=== PATIENT | female | born 1980 | race Caucasian/White ===

== ENCOUNTER → 2019-08-05 | Outpatient (CLI) | payer OTHER ==
[2019-08-05 09:11] LABS: BASO # 0.1 x10^3/uL (0.0-0.2); BASO % 1 % (0-3); EOS # 0.2 x10^3/uL (0.0-0.7); EOS % 1 % (0-3); HEMATOCRIT 35.4 % (36.0-47.0); HEMOGLOBIN 12.4 g/dL (12.0-15.5); LYMPH # 2.7 x10^3/uL (1.0-4.8); LYMPH % 20 % (24-48); MEAN CORPUSCULAR HEMOGLOBIN 35 pg (25-35); MEAN CORPUSCULAR HGB CONC 35 g/dL (31-37); MEAN CORPUSCULAR VOLUME 100 fL (79-100); MONO # 0.9 x10^3/uL (0.0-1.1); MONO % 7 % (0-9); NEUT # 9.5 x10^3/uL (1.8-7.7); NEUT % 72 % (31-73); PLATELET COUNT 275 x10^3/uL (140-400); RED BLOOD COUNT 3.55 x10^6/uL (3.50-5.40); RED CELL DISTRIBUTION WIDTH 13.6 % (11.5-14.5); WHITE BLOOD COUNT 13.3 x10^3/uL (4.0-11.0)
== END | disposition home or self-care (01) ==
LOC: LAB 08:38
PROVIDERS: ATTEND Obstetrics & Gynecology
DX: O09.90 Supervision of high risk pregnancy, unspecified, unspecified trimester (principal)
CPT/HCPCS: 36415; 82947; 82950; 85025; 86850; 86900; 86901; 96372; J2791

== ENCOUNTER 2019-10-28 11:00 | Inpatient (IN) | payer OTHER ==
[~2019-10-28] VITALS: Ht 160 cm; Wt 82.1 kg
[2019-10-28 11:27] LABS: BILIRUBIN,URINE NEGATIVE (NEG); CLARITY,URINE CLEAR; COLOR,URINE YELLOW; NITRITE,URINE NEGATIVE (NEG); PROTEIN,URINE NEGATIVE (NEG-TRACE); UROBILINOGEN,URINE 0.2 mg/dL (0.2 mg/dL)
[2019-10-28 11:46] LABS: BACTERIA,URINE FEW /HPF (0-FEW); RBC,URINE 0 /HPF (0-2); SQUAMOUS EPITHELIAL CELL,UR MANY /LPF; WBC,URINE OCC /HPF (0-4)
[2019-10-28 11:57] LABS: BASO # 0.1 x10^3/uL (0.0-0.2); BASO % 1 % (0-3); EOS # 0.1 x10^3/uL (0.0-0.7); EOS % 1 % (0-3); HEMATOCRIT 40.8 % (36.0-47.0); HEMOGLOBIN 14.3 g/dL (12.0-15.5); LYMPH % 20 % (24-48); MEAN CORPUSCULAR HEMOGLOBIN 35 pg (25-35); MEAN CORPUSCULAR HGB CONC 35 g/dL (31-37); MEAN CORPUSCULAR VOLUME 101 fL (79-100); MONO # 0.7 x10^3/uL (0.0-1.1); MONO % 7 % (0-9); NEUT # 7.4 x10^3/uL (1.8-7.7); NEUT % 72 % (31-73); PLATELET COUNT 199 x10^3/uL (140-400); RED BLOOD COUNT 4.05 x10^6/uL (3.50-5.40); RED CELL DISTRIBUTION WIDTH 13.9 % (11.5-14.5); WHITE BLOOD COUNT 10.2 x10^3/uL (4.0-11.0)
[2019-10-28 12:08] LABS: CALCIUM 8.1 mg/dL (8.5-10.1); CREATININE 0.7 mg/dL (0.6-1.0); GFR 92.2; POTASSIUM 4.1 mmol/L (3.5-5.1)
[2019-10-28 12:14] LABS: ALBUMIN 2.7 g/dL (3.4-5.0); ALBUMIN/GLOBULIN RATIO 0.8 (1.0-1.7); TOTAL BILIRUBIN 0.3 mg/dL (0.2-1.0); TOTAL PROTEIN 6.1 g/dL (6.4-8.2)
[2019-10-28] MEDS ORDERED: IV RINGERS,LACTATED 1000ML 1,000 ML IV SCH (13:11)
[2019-10-28] MEDS ORDERED: MAG HYDROX/ALUMINUM HYD/SIMETH 30 ML ORAL.SUSP PO PRN (13:15)
[2019-10-28] MEDS ORDERED: ONDANSETRON PF 4 MG/2 ML VIAL. IVP PRN (13:15)
[2019-10-28] MEDS ORDERED: TERBUTALINE 1 MG/ML VIAL. SQ PRN (13:15)
[2019-10-28] MEDS ORDERED: CITRIC ACID/SODIUM CITRATE 30 ML SOLUTION. PO PRN (13:15)
[2019-10-28] MEDS ORDERED: ACETAMINOPHEN 325 MG TABLET. PO PRN (13:15)
[2019-10-28] MEDS ORDERED: OXYTOCIN 30 UNIT/500 ML PREMIX 500 ML IV PRN ×2 (13:15)
[2019-10-28] MEDS ORDERED: fentaNYL PF VIAL 100 MCG/2 ML VIAL IVP PRN ×2 (13:15)
[2019-10-28] MEDS ORDERED: LIDOCAINE 1% PF 30 ML VIAL. INJ PRN (13:15)
[2019-10-28] MEDS ORDERED: 0.9 % SODIUM CHLORIDE 10 ML DISP.SYRIN. IV PRN (13:15)
--- NOTE | 2019-10-28 14:28 | PDOC1 ---
OB - History Hx of Present Care: Good Care Ultrasounds: Normal mid trimester US Obstetrical Complications: Gestational Hypertension Medical Complications: None Past Family/Social History * Past Medical, Surgical, Family and Obstetric Histories reviewed from chart. Rubella: Immune RPR/VDRL: Negative GBS Status: Negative HBsAG: Negative OB - Chief Complaint & HPI Date of Admission: Date of Admission: Oct 28, 2019 at 13:20 Chief Complaint/History : 1 Para: 0 EGA: 37 Reason for admission: induction of labor (gestational HTN) Admission Nurse Assessment Rev: Yes OB - Admission Exam Physical Exam HEENT: Normal Heart: Regular Rate Lungs: Clear Abdomen: Gravid, Non tender, Soft Extremities: Edema Reflexes: Normal Cervical Dilatation: 1cm Effacement: 50% Station: -3 Membranes: Intact Heart Rate: Normal Accelerations: Accelerations Present Decelerations: No decelerations Contractions on Admission: None Text A: 37 wks IUP Gestational HTN P: Admit IOL cervidil, then pitocin in am. Awaiting additional labs for preeclampsia evaluation. NEEMA SIEGEL Jr, MD Oct 28, 2019 14:28
[2019-10-28] MEDS: PANTOPRAZOLE 40 MG TABLET.DR. PO SCH (14:29)
[2019-10-28 14:42] VITALS: BP 138/89
[2019-10-28 15:40] LABS: CREATININE,RANDOM URINE 37.9 mg/dL (Not Establ.)
--- NOTE | 2019-10-28 16:52 | RAD ---
EXAM: Ultrasound OB Greater than 14 weeks, limited INDICATION: Reason: pih fluid level / Spl. Instructions: / History: TECHNIQUE: Real-time obstetrical ultrasound was performed with permanent freeze-frame documentation. COMPARISON: None. FINDINGS: POSITION: Cephalic HEART RATE: 157 bpm JAQUAN: 12.7 cm PLACENTA: Right fundal CERVICAL LENGTH: Not seen MATERNAL UTERUS: Unremarkable. MATERNAL ADNEXA: Unremarkable. AGE/DATES: Gestational Age by LMP: 37 weeks 3 days Gestation Age by US: 36 weeks 6 days EDC by LMP: November 15, 2019 EDC by US: November 19, 2019 WEIGHT: 2846 grams +/- 421 grams PERCENTILE WEIGHT: 30% BIOMETRIC PARAMETERS: BPD: 9.4 cm corresponding with 38 weeks 1 day HC: 33.6 cm corresponding with 38 weeks 3 days AC: 31.9 cm corresponding with 35 weeks 6 days FL: 6.8 cm corresponding with 34 weeks 6 days IMPRESSION: Normal limited OB ultrasound demonstrating a single viable fetus in cephalic position. Estimated gestational age of 36 weeks 6 days and EDC of November 19, 2019. Amniotic fluid index measures 12.7 cm. Electronically signed by: Jaime Alcala MD (10/28/2019 4:49 PM) [id number]
[2019-10-28] MEDS ORDERED: DINOPROSTONE 10 MG SUPP.VAG VG ONE (19:00)
[2019-10-28] MEDS ORDERED: diphenhydrAMINE HCL 25 MG CAPSULE PO PRN (23:30)
[2019-10-29] MEDS: IV RINGERS,LACTATED 1000ML 1,000 ML IV SCH ×2 (06:29→15:29)
[2019-10-29] MEDS: PANTOPRAZOLE 40 MG TABLET.DR. PO SCH (07:29)
[2019-10-29] MEDS ORDERED: IV RINGERS,LACTATED 1000ML 1,000 ML IV SCH (12:33)
[2019-10-29] MEDS ORDERED: L&D EPIDURAL SYRINGE 50 ML ONE ×2 (12:39→15:37)
[2019-10-29] MEDS ORDERED: ROPIVacaine 0.2% PF 10 ML VIAL. ONE ×2 (12:39→13:00)
[2019-10-29] MEDS ORDERED: NALOXONE 0.4 MG/ML VIAL. IV PRN (12:45)
[2019-10-29] MEDS ORDERED: L&D EPIDURAL 50 ML SYRINGE. ONE (13:00)
[2019-10-29 13:50] LABS: BASO # 0.1 x10^3/uL (0.0-0.2); BASO % 1 % (0-3); EOS % 0 % (0-3); HEMATOCRIT 38.7 % (36.0-47.0); HEMOGLOBIN 13.6 g/dL (12.0-15.5); LYMPH # 2.1 x10^3/uL (1.0-4.8); LYMPH % 16 % (24-48); MEAN CORPUSCULAR HEMOGLOBIN 36 pg (25-35); MEAN CORPUSCULAR HGB CONC 35 g/dL (31-37); MEAN CORPUSCULAR VOLUME 102 fL (79-100); MONO # 0.8 x10^3/uL (0.0-1.1); MONO % 7 % (0-9); NEUT # 9.6 x10^3/uL (1.8-7.7); NEUT % 76 % (31-73); PLATELET COUNT 178 x10^3/uL (140-400); RED BLOOD COUNT 3.81 x10^6/uL (3.50-5.40); RED CELL DISTRIBUTION WIDTH 13.9 % (11.5-14.5); WHITE BLOOD COUNT 12.7 x10^3/uL (4.0-11.0)
[2019-10-29] MEDS ORDERED: LIDOCAINE 2% PF 5 ML VIAL. ONE (13:56)
[2019-10-29 14:00] LABS: ALBUMIN 2.5 g/dL (3.4-5.0); ALBUMIN/GLOBULIN RATIO 0.8 (1.0-1.7); CALCIUM 7.9 mg/dL (8.5-10.1); CREATININE 0.7 mg/dL (0.6-1.0); GFR 92.2; TOTAL BILIRUBIN 0.3 mg/dL (0.2-1.0); TOTAL PROTEIN 5.5 g/dL (6.4-8.2)
--- NOTE | 2019-10-29 18:48 | PDOC ---
VAGINAL DELIVERY DATE DATE: 10/29/19 TIME: 18:47 : 1 Para: 1 EGA: 37 VAGINAL DELIVERY: VTX VACCUM ASSISTED: No PLACENTA: Spontaneous 7/9 SEX: Female WEIGHT Weight [ pending ] Nuchal Cord: No Amniotic Fluid: Clear PAIN: Epidural EPISIOTOMY: No EXTENSION: No EBL 300 ml COMPLICATIONS none CONDITION pt. stable Signs of Intrauterine Infectio: None Shoulder Dystocia: No NEEMA SIEGEL Jr, MD Oct 29, 2019 18:48
[2019-10-29] MEDS ORDERED: MMR per PROTOCOL. MC PRN (19:00)
[2019-10-29] MEDS ORDERED: oxyCODONE/APAP 5/325 1 TAB TABLET PO PRN (19:00)
[2019-10-29] MEDS ORDERED: TDaP (Adacel) per PROTOCOL. MC PRN (19:00)
[2019-10-29] MEDS ORDERED: OXYTOCIN 30 UNIT/500 ML PREMIX 500 ML IV PRN (19:00)
[2019-10-29] MEDS ORDERED: ZOLPIDEM 5 MG TABLET. PO PRN (19:00)
[2019-10-29] MEDS ORDERED: SIMETHICONE 80 MG TAB.CHEW PO PRN (19:00)
[2019-10-29] MEDS ORDERED: PHENYLEPH/MINERAL OIL/PETROLAT RECTAL OINTMENT TUBE. RC PRN (19:00)
[2019-10-29] MEDS ORDERED: HYDROCORTISONE 1% TOPICAL OINTMENT 30GM TUBE. TP PRN (19:00)
[2019-10-29] MEDS ORDERED: 0.9 % SODIUM CHLORIDE 10 ML DISP.SYRIN. IV PRN (19:00)
[2019-10-29] MEDS ORDERED: BENZOCAINE 20% TOPICAL AEROSOL SPRAY 57GM CAN. TP PRN (19:00)
[2019-10-29] MEDS ORDERED: diphenhydrAMINE HCL 25 MG CAPSULE PO PRN (19:00)
[2019-10-29] MEDS ORDERED: ACETAMINOPHEN 325 MG TABLET. PO PRN (19:00)
[2019-10-29] MEDS ORDERED: MAGNESIUM HYDROXIDE 2,400 MG/30 ML ORAL.SUSP. PO PRN (19:00)
[2019-10-29] MEDS ORDERED: MAG HYDROX/ALUMINUM HYD/SIMETH 30 ML ORAL.SUSP PO PRN (19:00)
[2019-10-29] MEDS: IBUPROFEN 400 MG TABLET. PO PRN (21:12)
[2019-10-29 22:00] VITALS: BP 124/87
[2019-10-29 23:20] VITALS: BP 124/81
--- NOTE | 2019-10-29 23:20 | NUR ---
Bathroom call light goes off in pt room. Patient found on bathroom floor with spouse standing over her. After being instructed not to ambulate without assistance pt ambulates thinking her is able to ambulate on her own. According to the pt she was in the bathroom reaching for pad on the floor when her legs went out from under her and she did the splits. Physically assessed for injuries, none noted. vss. Charge nurse and physician notified.
[2019-10-30] MEDS: IBUPROFEN 400 MG TABLET. PO PRN ×2 (02:39→14:26)
[2019-10-30 05:00] VITALS: BP 123/85
[2019-10-30 07:17] LABS: BASO # 0.1 x10^3/uL (0.0-0.2); BASO % 1 % (0-3); EOS # 0.1 x10^3/uL (0.0-0.7); EOS % 1 % (0-3); HEMATOCRIT 37.4 % (36.0-47.0); HEMOGLOBIN 12.6 g/dL (12.0-15.5); LYMPH # 2.4 x10^3/uL (1.0-4.8); LYMPH % 16 % (24-48); MEAN CORPUSCULAR HEMOGLOBIN 34 pg (25-35); MEAN CORPUSCULAR HGB CONC 34 g/dL (31-37); MEAN CORPUSCULAR VOLUME 102 fL (79-100); MONO % 7 % (0-9); NEUT % 77 % (31-73); PLATELET COUNT 166 x10^3/uL (140-400); RED BLOOD COUNT 3.67 x10^6/uL (3.50-5.40); RED CELL DISTRIBUTION WIDTH 13.8 % (11.5-14.5); WHITE BLOOD COUNT 15.6 x10^3/uL (4.0-11.0)
[2019-10-30 07:33] LABS: ALBUMIN 2.1 g/dL (3.4-5.0); ALBUMIN/GLOBULIN RATIO 0.8 (1.0-1.7); CALCIUM 8.3 mg/dL (8.5-10.1); CREATININE 0.7 mg/dL (0.6-1.0); GFR 92.2; POTASSIUM 4.1 mmol/L (3.5-5.1); TOTAL BILIRUBIN 0.4 mg/dL (0.2-1.0); TOTAL PROTEIN 4.9 g/dL (6.4-8.2)
[2019-10-30] MEDS: MULTIVITAMIN with MINERAL TABLET. PO SCH (09:59)
[2019-10-30] MEDS: DOCUSATE SODIUM 100 MG CAPSULE. PO PRN (09:59)
[2019-10-30] MEDS: PANTOPRAZOLE 40 MG TABLET.DR. PO SCH (09:59)
[2019-10-30] MEDS: FERROUS SULFATE 325 MG TABLET. PO SCH (10:00)
[2019-10-30 10:20] VITALS: BP 128/86
--- NOTE | 2019-10-30 13:48 | PDOC ---
OB Progress Note Date of Service 10/30/19 Time of Evaluation 1340 Notes Pt. feeling well. She had fall in shower from losing her balance. She is better now. Lab Laboratory Tests Test 10/28/19 14:10 10/29/19 13:31 10/30/19 06:50 Coronavirus (PCR) Not detected (Not Detected) Rubella IgG Antibody 15.60 index (Immune >0.99) SARS-CoV-2 Antigen (Rapid) Negative (NEGATIVE) White Blood Count 12.7 x10^3/uL (4.0-11.0) 15.6 x10^3/uL (4.0-11.0) Red Blood Count 3.81 x10^6/uL (3.50-5.40) 3.67 x10^6/uL (3.50-5.40) Hemoglobin 13.6 g/dL (12.0-15.5) 12.6 g/dL (12.0-15.5) Hematocrit 38.7 % (36.0-47.0) 37.4 % (36.0-47.0) Mean Corpuscular Volume 102 fL (79-100) 102 fL (79-100) Mean Corpuscular Hemoglobin 36 pg (25-35) 34 pg (25-35) Mean Corpuscular Hemoglobin Concent 35 g/dL (31-37) 34 g/dL (31-37) Red Cell Distribution Width 13.9 % (11.5-14.5) 13.8 % (11.5-14.5) Platelet Count 178 x10^3/uL (140-400) 166 x10^3/uL (140-400) Neutrophils (%) (Auto) 76 % (31-73) 77 % (31-73) Lymphocytes (%) (Auto) 16 % (24-48) 16 % (24-48) Monocytes (%) (Auto) 7 % (0-9) 7 % (0-9) Eosinophils (%) (Auto) 0 % (0-3) 1 % (0-3) Basophils (%) (Auto) 1 % (0-3) 1 % (0-3) Neutrophils # (Auto) 9.6 x10^3/uL (1.8-7.7) 12.0 x10^3/uL (1.8-7.7) Lymphocytes # (Auto) 2.1 x10^3/uL (1.0-4.8) 2.4 x10^3/uL (1.0-4.8) Monocytes # (Auto) 0.8 x10^3/uL (0.0-1.1) 1.0 x10^3/uL (0.0-1.1) Eosinophils # (Auto) 0.0 x10^3/uL (0.0-0.7) 0.1 x10^3/uL (0.0-0.7) Basophils # (Auto) 0.1 x10^3/uL (0.0-0.2) 0.1 x10^3/uL (0.0-0.2) Sodium Level 137 mmol/L (136-145) 139 mmol/L (136-145) Potassium Level 4.0 mmol/L (3.5-5.1) 4.1 mmol/L (3.5-5.1) Chloride Level 104 mmol/L (98-107) 106 mmol/L (98-107) Carbon Dioxide Level 22 mmol/L (21-32) 23 mmol/L (21-32) Anion Gap 11 (6-14) 10 (6-14) Blood Urea Nitrogen 7 mg/dL (7-20) 8 mg/dL (7-20) Creatinine 0.7 mg/dL (0.6-1.0) 0.7 mg/dL (0.6-1.0) Estimated GFR (Cockcroft-Gault) 92.2 92.2 BUN/Creatinine Ratio 10 (6-20) 11 (6-20) Glucose Level 69 mg/dL (70-99) 62 mg/dL (70-99) Calcium Level 7.9 mg/dL (8.5-10.1) 8.3 mg/dL (8.5-10.1) Total Bilirubin 0.3 mg/dL (0.2-1.0) 0.4 mg/dL (0.2-1.0) Aspartate Amino Transf (AST/SGOT) 48 U/L (15-37) 64 U/L (15-37) Alanine Aminotransferase (ALT/SGPT) 64 U/L (14-59) 61 U/L (14-59) Alkaline Phosphatase 176 U/L (46-116) 145 U/L (46-116) Total Protein 5.5 g/dL (6.4-8.2) 4.9 g/dL (6.4-8.2) Albumin 2.5 g/dL (3.4-5.0) 2.1 g/dL (3.4-5.0) Albumin/Globulin Ratio 0.8 (1.0-1.7) 0.8 (1.0-1.7) Laboratory Tests Test 10/30/19 06:50 White Blood Count 15.6 x10^3/uL (4.0-11.0) Red Blood Count 3.67 x10^6/uL (3.50-5.40) Hemoglobin 12.6 g/dL (12.0-15.5) Hematocrit 37.4 % (36.0-47.0) Mean Corpuscular Volume 102 fL (79-100) Mean Corpuscular Hemoglobin 34 pg (25-35) Mean Corpuscular Hemoglobin Concent 34 g/dL (31-37) Red Cell Distribution Width 13.8 % (11.5-14.5) Platelet Count 166 x10^3/uL (140-400) Neutrophils (%) (Auto) 77 % (31-73) Lymphocytes (%) (Auto) 16 % (24-48) Monocytes (%) (Auto) 7 % (0-9) Eosinophils (%) (Auto) 1 % (0-3) Basophils (%) (Auto) 1 % (0-3) Neutrophils # (Auto) 12.0 x10^3/uL (1.8-7.7) Lymphocytes # (Auto) 2.4 x10^3/uL (1.0-4.8) Monocytes # (Auto) 1.0 x10^3/uL (0.0-1.1) Eosinophils # (Auto) 0.1 x10^3/uL (0.0-0.7) Basophils # (Auto) 0.1 x10^3/uL (0.0-0.2) Sodium Level 139 mmol/L (136-145) Potassium Level 4.1 mmol/L (3.5-5.1) Chloride Level 106 mmol/L (98-107) Carbon Dioxide Level 23 mmol/L (21-32) Anion Gap 10 (6-14) Blood Urea Nitrogen 8 mg/dL (7-20) Creatinine 0.7 mg/dL (0.6-1.0) Estimated GFR (Cockcroft-Gault) 92.2 BUN/Creatinine Ratio 11 (6-20) Glucose Level 62 mg/dL (70-99) Calcium Level 8.3 mg/dL (8.5-10.1) Total Bilirubin 0.4 mg/dL (0.2-1.0) Aspartate Amino Transf (AST/SGOT) 64 U/L (15-37) Alanine Aminotransferase (ALT/SGPT) 61 U/L (14-59) Alkaline Phosphatase 145 U/L (46-116) Total Protein 4.9 g/dL (6.4-8.2) Albumin 2.1 g/dL (3.4-5.0) Albumin/Globulin Ratio 0.8 (1.0-1.7) Medications Current Medications Ringer's Solution 1,000 ml @ 125 mls/hr Q8H IV Last administered on 10/29/19at 15:29; Start 10/28/19 at 11:16 Sodium Chloride (Normal Saline Flush) 3 ml QSHIFT PRN IV AFTER MEDS AND BLOOD DRAWS; Start 10/28/19 at 13:15 Ringer's Solution 1,000 ml @ 125 mls/hr Q8H IV Last administered on 10/29/19at 12:07; Start 10/28/19 at 13:11 Fentanyl Citrate (Fentanyl 2ml Vial) 50 mcg PRN Q30MIN PRN IVP Mild to moderate pain; Start 10/28/19 at 13:15 Fentanyl Citrate (Fentanyl 2ml Vial) 100 mcg PRN Q30MIN PRN IVP Severe pain; Start 10/28/19 at 13:15 Acetaminophen (Tylenol) 650 mg PRN Q6HRS PRN PO MILD PAIN / TEMP > 100.3'F; Start 10/28/19 at 13:15 Ondansetron HCl (Zofran) 4 mg PRN Q4HRS PRN IVP NAUSEA/VOMITING; Start 10/28/19 at 13:15 Al Hydroxide/Mg Hydroxide (Mylanta Plus Xs) 30 ml PRN Q4HRS PRN PO HEARTBURN / GAS; Start 10/28/19 at 13:15 Citric Acid/ Sodium Citrate (Bicitra) 30 ml 1X PRN PRN PO DYSPEPSIA; Start 10/28/19 at 13:15; Stop 10/29/19 at 13:14; Status DC Terbutaline Sulfate (Brethine) 0.25 mg 1X PRN PRN SQ SEE COMMENTS; Start 10/28/19 at 13:15; Stop 10/29/19 at 13:14; Status DC Lidocaine HCl (Xylocaine 1% Pf 30ml Vial) 30 ml 1X PRN PRN INJ SEE COMMENTS; Start 10/28/19 at 13:15; Stop 10/30/19 at 13:14; Status DC Oxytocin/Sodium Chloride 500 ml @ 0 mls/hr CONT PRN IV SEE I/O RECORD Last adm inistered on 10/29/19at 07:15; Start 10/28/19 at 13:15 Oxytocin/Sodium Chloride 500 ml @ 0 mls/hr CONT PRN PRN IV Post delivery bl eeding; Start 10/28/19 at 13:15 Ibuprofen (Motrin) 800 mg PRN Q6HRS PRN PO PAIN Last administered on 10/30/19at 02:39; Start 10/28/19 at 13:15 Dinoprostone (Cervidil) 10 mg 1X ONCE VG Last administered on 10/28/19at 19:14; Start 10/28/19 at 19:00; Stop 10/28/19 at 19:01; Status DC Pantoprazole Sodium (Protonix) 40 mg DAILYAC PO Last administered on 10/30/19at 09:59; Start 10/28/19 at 14:30 Diphenhydramine HCl (Benadryl) 50 mg PRN QHS PRN PO INSOMNIA Last administered on 10/28/19at 23:41; Start 10/28/19 at 23:30 Ringer's Solution 1,000 ml @ 1,000 mls/hr Q1H IV ; Start 10/29/19 at 12:33; Stop 10/29/19 at 13:32; Status DC Naloxone HCl (Narcan) 0.04 mg PRN Q1MIN PRN IV SEE COMMENTS; Start 10/29/19 at 12:45 Ropivacaine (Naropin 0.2%) 10 ml STK-MED ONCE .ROUTE ; Start 10/29/19 at 12:39; Stop 10/29/19 at 12:40; Status DC Fentanyl Citrate 50 ml @ As Directed STK-MED ONCE .ROUTE ; Start 10/29/19 at 12: 39; Stop 10/29/19 at 12:40; Status DC Lidocaine HCl (Lidocaine Pf 2% Vial) 5 ml STK-MED ONCE .ROUTE ; Start 10/29/19 at 13:56; Stop 10/29/19 at 13:56; Status DC Fentanyl Citrate 50 ml @ As Directed STK-MED ONCE .ROUTE ; Start 10/29/19 at 15:37; Stop 10/29/19 at 15:37; Status DC Sodium Chloride (Normal Saline Flush) 10 ml QSHIFT PRN IV AFTER MEDS AND BLOOD DRAWS; Start 10/29/19 at 19:00 Oxytocin/Sodium Chloride 500 ml @ 62.5 mls/hr CONT PRN IV SEE I/O RECORD; Start 10/29/19 at 19:00; Stop 10/30/19 at 02:59; Status DC Acetaminophen (Tylenol) 650 mg PRN Q6HRS PRN PO MILD PAIN / TEMP > 100.3'F; Start 10/29/19 at 19:00 Ibuprofen (Motrin) 800 mg PRN Q8HRS PRN PO INFLAMMATION/PAIN PREVENTION; Start 10/29/19 at 19:00 Docusate Sodium (Colace) 100 mg PRN BID PRN PO HARD STOOL Last administered on 10/30/19at 09:59; Start 10/29/19 at 19:00 Magnesium Hydroxide (Milk Of Magnesia) 2,400 mg PRN DAILY PRN PO CONSTIPATION; Start 10/29/19 at 19:00 Al Hydroxide/Mg Hydroxide (Mylanta Plus Xs) 30 ml PRN Q4HRS PRN PO HEARTBURN / GAS; Start 10/29/19 at 19:00 Simethicone (Gas-X) 80 mg PRN AFTMEALHC PRN PO GAS / BLOATING; Start 10/29/19 at 19:00 Diphenhydramine HCl (Benadryl) 25 mg PRN Q6HRS PRN PO ITCHING; Start 10/29/19 at 19:00 Benzocaine (Americaine) 1 spray PRN QID PRN TP TOPICAL PAIN Last administered on 10/29/19at 21:12; Start 10/29/19 at 19:00 Phenyleph/Shark Oil/Min Oil/Petrol (Preparation H) 1 brittani PRN QID PRN RC RECTAL PAIN; Start 10/29/19 at 19:00 Hydrocortisone (Cortaid) 1 brittani PRN QID PRN TP PERINEAL PAIN; Start 10/29/19 at 19:00 Ferrous Sulfate (Feosol) 325 mg BIDWMEALS PO Last administered on 10/30/19at 10:00; Start 10/30/19 at 08:00 Zolpidem Tartrate (Ambien) 5 mg PRN QHS PRN PO INSOMNIA, MAY REPEAT X1; Start 10/29/19 at 19:00 Info (Do NOT chart on this placeholder) 1 ea 1X PRN PRN MC SEE COMMENTS; Start 10/29/19 at 19:00 Info (Do NOT chart on this placeholder) 1 ea 1X PRN PRN MC SEE COMMENTS; Start 10/29/19 at 19:00 Oxycodone/ Acetaminophen (Percocet 5/325) 2 tab PRN Q4HRS PRN PO MODERATE PAIN, SEVERE PAIN Last administered on 10/30/19at 06:06; Start 10/29/19 at 19:00 Multivitamins (Thera M Plus) 1 tab DAILY PO Last administered on 10/30/19at 09:59; Start 10/30/19 at 09:00 Exam Abd: soft, mild tenderness, fundus firm LE: edema +3 richard., DTR's+2 richard. Assessment PPD#1 s/p Preeclampsia: resolving Plan of Care: Continue current Tx, Mgmt (Continue current care. Lasix for LE edema.) NEEMA SIEGEL Jr, MD Oct 30, 2019 13:48
[2019-10-30] MEDS: FUROSEMIDE 20 MG TABLET PO SCH (14:26)
[2019-10-30 15:19] VITALS: BP 132/88
[2019-10-30 20:40] VITALS: BP 124/91
[2019-10-31] MEDS: IBUPROFEN 400 MG TABLET. PO PRN ×2 (06:04→13:34)
[2019-10-31 06:09] VITALS: BP 142/92
[2019-10-31 06:46] VITALS: BP 124/85
[2019-10-31 07:40] VITALS: BP 122/87
[2019-10-31] MEDS: MULTIVITAMIN with MINERAL TABLET. PO SCH (07:46)
[2019-10-31] MEDS: FERROUS SULFATE 325 MG TABLET. PO SCH (07:46)
[2019-10-31] MEDS: PANTOPRAZOLE 40 MG TABLET.DR. PO SCH (07:46)
[2019-10-31] MEDS: DOCUSATE SODIUM 100 MG CAPSULE. PO PRN (07:46)
[2019-10-31] MEDS: FUROSEMIDE 20 MG TABLET PO SCH (07:47)
--- NOTE | 2019-10-31 10:24 | PDOC3 ---
OB DISCHARGE SUMMARY DATE OF ADMISSION: 10/28/19 DATE OF DISCHARGE: 10/31/19 REASON FOR ADMISSION: Induction of labor (preeclampsia) INTRAPARTUM PROCEDURES: Spontanous Vag Deliv DISCHARGE DIAGNOSIS: Preclampsia DISCHARGE INFORMATION: Activity (ad niharika), Diet (regular), Instructions (pelvic rest x 6 wks) HOSPITAL COURSE Term gestation with preeclampsia delivered vaginally without complications. NEEMA SIEGEL Jr, MD Oct 31, 2019 10:24
[2019-10-31] MEDS ORDERED: FURO20TA3 PO (10:28)
[2019-10-31] MEDS ORDERED: ALPR0.5T6 PO (10:28)
[2019-10-31] MEDS ORDERED: IBUP-1027 PO (10:28)
--- NOTE | 2019-10-31 10:29 | DISCH ---
DISCHARGE INSTRUCTIONS Condition on Discharge Condition on Discharge: Stable Activity After Discharge Activity Instructions for Disc: Activity as tolerated Lifting Instructions after Dis: No heavy lifting Driving Instructions after Dis: Do not drive today Diet after Discharge Diet after Discharge: Regular Contacting the [facility] after DC Call your doctor for: Concerns you may have Follow-Up Follow up with: Dr. Nelson in 4 wks NEEMA NELSON Jr, MD Oct 31, 2019 10:29
[2019-10-31 13:30] VITALS: BP 130/91
--- NOTE | 2019-10-31 14:35 | NUR ---
Discharge and follow up instructions reviewed and given to pt along with 3 Rx's. Pt verbalized understanding. Pt ambulated out of the hospital with staff and her and by her side.
--- NOTE | 2019-11-07 12:06 | PATHOLOGY ---
[facility] Accession Number: [id number] . 01 Material submitted: . placenta - PLACENTA AND CORD . 01 Clinical history: . 37 weeks, induced hypertension, advanced maternal age, obs induction - vaginal delivery APGARS 1-8, 5-9. . 02 Diagnosis: Placenta, vaginal delivery: - Mature, moy placenta weighing 410 grams (at approximately the 40th percentile for a 37+ week gestation). - Three vessel umbilical cord, abnormally thin (0.6 - 1.2 cm in diameter), with a central insertion into the chorionic plate, and a remnant omphalomesenteric duct. - Meconium staining of membranes. - Laminar decidual necrosis. - Acute and chronic deciduitis. - Chronic villitis, patchy. - Spiral artery thrombi, with acute atherosis, consistent with clinical history of induced hypertension. (CORNELL/gela; 11/04/2019) [facility] 11/07/2019 1104 Local . 02 Electronically signed: . Swapna Victor MD, Pathologist NPI- [id number] . 01 Gross description: . Received in formalin labeled "Mary Anne Crawley, placenta" is a moy placenta with attached membranes and umbilical cord. The placental disc measures 19.2 x 17.6 x 2.8 cm. The membranes are transparent and thin with the site of membrane rupture 4.2 cm from the placental disc. The membranes have marginal insertion. The umbilical cord measures 41.6 cm in length, 0.6 - 1.2 cm in diameter, contains three vessels and inserts centrally, 5.6 cm from the closest placental margin. There are no true knots in the umbilical cord. The trimmed placental weight is 410 grams. The surface is blue-monterroso with minimal subchorionic fibrin. Amnion nodosum is not present. Cysts are not present. The maternal surface has intact cotyledons and no basal hemorrhage. Sectioning through the placental disc reveals diffuse moderate calcification and one possible chronic infarct in the central placenta measuring 1.7 x 0.7 x 0.4 cm. Inlayer Silver sections are submitted as follows: . A1 proximal and distal umbilical cord A2 membranes, rolled A3 customer success representative peripheral placenta A4 customer success representative central placenta with possible chronic infarct A5 additional maternal surface A6 surface adjacent to umbilical cord insertion site [place] [place] [facility] 11/07/2019 1058 Local . 02 Pathologist provided ICD-10: O77.0, Z3A.37, Z37.0 . 02 CPT . 930961 Specimen Comment: A courtesy copy of this report has been sent to [phone], [phone] Specimen Comment: [id number] Specimen Comment: Report sent to Performed at: 01 [facility] [address] [id number] MD Guillaume Gibbons MD Phone: [phone] Performed at: 02 [facility] [id number] [address] [id number] MD Jasson Siegel MD Phone: [phone]
== END 2019-10-31 14:35 | disposition home or self-care (01) | DRG 807 ==
LOC: 3 SO LND 11:00 → OBSVTOIN 13:20 → 3 NORTH 10-29 22:00
PROVIDERS: ADMIT Obstetrics & Gynecology; ATTEND Obstetrics & Gynecology
PROC: 10E0XZZ Delivery of Products of Conception, External Approach (ICD-10-PCS; principal; 2019-10-29)
PROC: 3E0R3BZ Introduction of Anesthetic Agent into Spinal Canal, Percutaneous Approach (ICD-10-PCS; 2019-10-29)
PROC: 00HU33Z Insertion of Infusion Device into Spinal Canal, Percutaneous Approach (ICD-10-PCS; 2019-10-29)
DX: O14.94 Unspecified pre-eclampsia, complicating childbirth (principal); Z37.0 Single live birth; Z3A.37 37 weeks gestation of pregnancy; Z88.0 Allergy status to penicillin; Z88.8 Allergy status to other drugs, medicaments and biological substances; Z20.828 Contact with and (suspected) exposure to other viral communicable diseases
CPT/HCPCS: 36415; 76815; 80053; 81001; 82570; 84156; 85025; 85461; 86592; 86703; 86762; 86850; 86900; 86901; 87340; 87426; 88307; G0378; G0379; J2590; J2791; J2795; J3010; J7120; Q0163; U0003-CS

== ENCOUNTER 2019-11-02 21:20 | Inpatient (IN) | payer OTHER ==
[~2019-11-02] VITALS: Ht 160 cm; Wt 76.9 kg
[~2019-11-02 21:20] MED LIST: ALPR0.5T6 PO; FURO20TA3 PO; IBUP-1027 PO
[2019-11-02] MEDS ORDERED: OMEP20TA63 PO (21:46)
[2019-11-02 22:08] VITALS: BP 143/99
[2019-11-02] MEDS ORDERED: ZOLP5TAB PO (22:58)
[2019-11-02] MEDS ORDERED: MAGN4PIG IV (22:58)
[2019-11-03] VITALS (14 sets, daily range): BP systolic 105–141; BP diastolic 66–95
[2019-11-03] MEDS ORDERED: LABETALOL 20 MG/4 ML DISP.SYRIN. IVP PRN (00:45)
[2019-11-03] MEDS ORDERED: MAGNESIUM SULFATE 4GM 100 ML IV ONE (01:30)
[2019-11-03] MEDS ORDERED: ACETAMINOPHEN 325 MG TABLET. PO PRN (01:30)
[2019-11-03 07:31] LABS: ALBUMIN 2.7 g/dL (3.4-5.0); ALBUMIN/GLOBULIN RATIO 0.7 (1.0-1.7); CALCIUM 8.6 mg/dL (8.5-10.1); CREATININE 0.6 mg/dL (0.6-1.0); GFR 110.2; MAGNESIUM 2.8 mg/dL (1.8-2.4); POTASSIUM 4.1 mmol/L (3.5-5.1); TOTAL BILIRUBIN 0.5 mg/dL (0.2-1.0); TOTAL PROTEIN 6.4 g/dL (6.4-8.2)
[2019-11-03 08:14] LABS: BILIRUBIN,URINE NEGATIVE (NEG); CLARITY,URINE CLEAR; COLOR,URINE YELLOW; NITRITE,URINE NEGATIVE (NEG); PH,URINE 6.5 (<5.0-8.0); PROTEIN,URINE NEGATIVE (NEG-TRACE)
[2019-11-03] MEDS ORDERED: CALCIUM GLUCONATE 1,000 MG/10 ML VIAL. IVP PRN (08:15)
--- NOTE | 2019-11-03 08:16 | PDOC2 ---
CONSULT Date of Consult Date of Consult DATE: 11/03/19 TIME: 08:11 Reason for Consult Reason for Consult: HTN post Referring Physician Referring Physician: Dr. Caraballo Identification/Chief Complaint Chief Complaint headache and leg swelling Source Source: Chart review, Patient History of Present Illness Reason for Visit: 39 y/o s/p 3 days ago with headache and increased leg swelling. Pt. was dx preeclampsia and had induction of labor. Pt. transferred from [facility] for suspected post preeclampsia symptoms. Past Medical History Cardiovascular: No pertinent hx Pulmonary: No pertinent hx Past Surgical History Past Surgical History: No pertinent history Current Medications Current Medications Current Medications Alprazolam (Xanax) 0.5 mg DAILY PO ; Start 11/03/19 at 09:00 Furosemide (Lasix) 20 mg DAILY PO ; Start 11/03/19 at 09:00 Pantoprazole Sodium (Protonix) 40 mg DAILYAC PO ; Start 11/03/19 at 07:30 Labetalol HCl (Normodyne Iv Push) 20 mg PRN Q4HRS PRN IVP SBP>150; Start 11/03/19 at 00:45 Magnesium Sulfate 100 ml @ 25 mls/hr 1X ONCE IV Last administered on 11/03/19at 01:29; Start 11/03/19 at 01:30; Stop 11/03/19 at 05:29; Status DC Acetaminophen (Tylenol) 650 mg PRN Q6HRS PRN PO MILD PAIN 1-3; Start 11/03/19 at 01:30 Active Scripts Active Alprazolam 0.5 Mg Tablet 1 Tab PO DAILY Furosemide 20 Mg Tablet 20 Mg PO DAILY Reported Magnesium Sulfate 4 Gm/50 Ml Piggyback 4 Gm IV 1X Ambien (Zolpidem Tartrate) 5 Mg Tablet 5 Mg PO PRN QHS PRN Prilosec Otc (Omeprazole Magnesium) 20 Mg Tablet. 1 Tab PO DAILY 30 Days Allergies Allergies: Coded Allergies: Penicillins (Verified Allergy, Severe, Swelling, 10/28/19) cephalexin (Verified Allergy, Intermediate, 10/28/19) sulfamethoxazole (Verified Allergy, Intermediate, Palpitations, 10/28/19) trimethoprim (Verified Allergy, Intermediate, Palpitations, 10/28/19) ROS General: YES: Fatigue; No: Chills, Night Sweats, Malaise, Appetite, Other PSYCHOLOGICAL ROS: YES: Anxiety; No: Behavioral Disorder, Concentration difficultie, Decreased libido, Depression, Disorientation, Hallucinations, Hostility, Irritablity, Memory difficulties, Mood Swings, Obsessive thoughts, Physical abuse, Sexual abuse, Sleep disturbances, Suicidal ideation, Other Eyes: No Blurry vision, No Decreased vision, No Double vision, No Dry eyes, No Excessive tearing, No Eye Pain, No Itchy Eyes, No Loss of vision, No Photophobia, No Scotomata, No Uses contacts, No Uses glasses, No Other HEENT: No: Heacaches, Visual Changes, Hearing change, Nasal congestion, Nasal discharge, Oral lesions, Sinus pain, Sore Throat, Epistaxis, Sneezing, Snoring, Tinnitus, Vertigo, Vocal changes, Other ALLERGY AND IMMUNOLOGY: No: Hives, Insect Bite Sensitivity, Itchy/Watery Eyes, Nasal Congestion, Post Nasal Drip, Seasonal Allergies, Other Hematological and Lymphatic: No: Bleeding Problems, Blood Clots, Blood Transfusions, Brusing, Night Sweats, Pallor, Swollen Lymph Nodes, Other ENDOCRINE: No: Breast Changes, Galactorrhea, Hair Pattern Changes, Hot Flashes, Malaise/lethargy, Mood Swings, Palpitations, Polydipsia/polyuria, Skin Changes, Temperature Intolerance, Unexpected Weight Changes, Other Breast: No New/Changing Breast Lumps, No Nipple changes, No Nipple discharge, No Other Respiratory: No: Cough, Hemoptysis, Orthopnea, Pleuritic Pain, Shortness of breath, SOB with excertion, Sputum Changes, Stridor, Tachypnea, Wheezing, Other Gastrointestinal: No Nausea, No Vomiting, No Abdominal Pain, No Diarrhea, No Constipation, No Melena, No Hematochezia, No Other Physical Exam General: Alert, Cooperative HEENT: Atraumatic Lungs: Clear to auscultation Heart: Regular rate Abdomen: Normal bowel sounds, Soft, No tenderness Extremities: Other (LE edema +3 up to richard. knees) Neuro: Normal gait Psych/Mental Status: Mental status NL Vitals VITALS Vital Signs Date Time Temp Pulse Resp B/P (MAP) Pulse Ox O2 Delivery O2 Flow Rate FiO2 11/03/19 02:37 98.2 88 18 141/95 (110) 98 Room Air 98.2 Labs Labs Laboratory Tests Test 11/03/19 06:05 Sodium Level 138 mmol/L (136-145) Potassium Level 4.1 mmol/L (3.5-5.1) Chloride Level 105 mmol/L (98-107) Carbon Dioxide Level 23 mmol/L (21-32) Anion Gap 10 (6-14) Blood Urea Nitrogen 10 mg/dL (7-20) Creatinine 0.6 mg/dL (0.6-1.0) Estimated GFR (Cockcroft-Gault) 110.2 BUN/Creatinine Ratio 17 (6-20) Glucose Level 85 mg/dL (70-99) Calcium Level 8.6 mg/dL (8.5-10.1) Magnesium Level 2.8 mg/dL (1.8-2.4) Total Bilirubin 0.5 mg/dL (0.2-1.0) Aspartate Amino Transf (AST/SGOT) 71 U/L (15-37) Alanine Aminotransferase (ALT/SGPT) 105 U/L (14-59) Alkaline Phosphatase 143 U/L (46-116) Total Protein 6.4 g/dL (6.4-8.2) Albumin 2.7 g/dL (3.4-5.0) Albumin/Globulin Ratio 0.7 (1.0-1.7) Laboratory Tests Test 11/03/19 06:05 Sodium Level 138 mmol/L (136-145) Potassium Level 4.1 mmol/L (3.5-5.1) Chloride Level 105 mmol/L (98-107) Carbon Dioxide Level 23 mmol/L (21-32) Anion Gap 10 (6-14) Blood Urea Nitrogen 10 mg/dL (7-20) Creatinine 0.6 mg/dL (0.6-1.0) Estimated GFR (Cockcroft-Gault) 110.2 BUN/Creatinine Ratio 17 (6-20) Glucose Level 85 mg/dL (70-99) Calcium Level 8.6 mg/dL (8.5-10.1) Magnesium Level 2.8 mg/dL (1.8-2.4) Total Bilirubin 0.5 mg/dL (0.2-1.0) Aspartate Amino Transf (AST/SGOT) 71 U/L (15-37) Alanine Aminotransferase (ALT/SGPT) 105 U/L (14-59) Alkaline Phosphatase 143 U/L (46-116) Total Protein 6.4 g/dL (6.4-8.2) Albumin 2.7 g/dL (3.4-5.0) Albumin/Globulin Ratio 0.7 (1.0-1.7) Assessment/Plan Assessment/Plan A: Post preeclampsia P: Start magnesium sulfate 2 gm/hour for next 24 hours. Lasix daily for LE edema. Treat any severe BP >160/110 with hydralazine. ID consult for possible face abscess. NEEMA SIEGEL Jr, MD Nov 03, 2019 08:16
[2019-11-03 08:23] LABS: BACTERIA,URINE 0 /HPF (0-FEW); SQUAMOUS EPITHELIAL CELL,UR OCC /LPF; WBC,URINE OCC /HPF (0-4)
[2019-11-03] MEDS: FUROSEMIDE 20 MG TABLET PO SCH (08:47)
[2019-11-03] MEDS: PANTOPRAZOLE 40 MG TABLET.DR. PO SCH (08:47)
[2019-11-03] MEDS: ALPRAZolam 0.5 MG TABLET PO SCH (08:47)
--- NOTE | 2019-11-03 09:59 | PDOC ---
Infectious Disease Note Vital Sign Vital Signs Vital Signs Date Time Temp Pulse Resp B/P (MAP) Pulse Ox O2 Delivery O2 Flow Rate FiO2 11/03/19 07:00 98.1 86 20 129/78 (95) 97 Room Air 98.1 Labs Lab Laboratory Tests Test 11/03/19 06:05 11/03/19 06:39 Sodium Level 138 mmol/L (136-145) Potassium Level 4.1 mmol/L (3.5-5.1) Chloride Level 105 mmol/L (98-107) Carbon Dioxide Level 23 mmol/L (21-32) Anion Gap 10 (6-14) Blood Urea Nitrogen 10 mg/dL (7-20) Creatinine 0.6 mg/dL (0.6-1.0) Estimated GFR (Cockcroft-Gault) 110.2 BUN/Creatinine Ratio 17 (6-20) Glucose Level 85 mg/dL (70-99) Calcium Level 8.6 mg/dL (8.5-10.1) Magnesium Level 2.8 mg/dL (1.8-2.4) Total Bilirubin 0.5 mg/dL (0.2-1.0) Aspartate Amino Transf (AST/SGOT) 71 U/L (15-37) Alanine Aminotransferase (ALT/SGPT) 105 U/L (14-59) Alkaline Phosphatase 143 U/L (46-116) Total Protein 6.4 g/dL (6.4-8.2) Albumin 2.7 g/dL (3.4-5.0) Albumin/Globulin Ratio 0.7 (1.0-1.7) Urine Collection Type Unknown Urine Color Yellow Urine Clarity Clear Urine pH 6.5 (<5.0-8.0) Urine Specific Sunset 1.025 (1.000-1.030) Urine Protein Negative mg/dL (NEG-TRACE) Urine Glucose (UA) Negative mg/dL (NEG) Urine Ketones (Stick) Negative mg/dL (NEG) Urine Blood Moderate (NEG) Urine Nitrite Negative (NEG) Urine Bilirubin Negative (NEG) Urine Urobilinogen Dipstick 1.0 mg/dL (0.2 mg/dL) Urine Leukocyte Esterase Negative (NEG) Urine RBC 1-2 /HPF (0-2) Urine WBC Occ /HPF (0-4) Urine Squamous Epithelial Cells Occ /LPF Urine Bacteria 0 /HPF (0-FEW) Objective Assessment Facial abscess Abx allergies - PCN/Keflex/Bactrim - swelling/SOA Post Pre-eclampsia Leukocytosis Plan Plan of Care Currently not breast feeding Dose Daptomycin Check CBC/ck CBC/CMP in am F/u response May need drainage if worsens Thank you # [id number] CHARLES ALEJANDRA MD Nov 03, 2019 09:59
[2019-11-03 10:14] LABS: BASO # 0.1 x10^3/uL (0.0-0.2); BASO % 1 % (0-3); EOS # 0.3 x10^3/uL (0.0-0.7); EOS % 3 % (0-3); HEMATOCRIT 41.8 % (36.0-47.0); HEMOGLOBIN 14.5 g/dL (12.0-15.5); LYMPH # 1.9 x10^3/uL (1.0-4.8); LYMPH % 19 % (24-48); MEAN CORPUSCULAR HEMOGLOBIN 36 pg (25-35); MEAN CORPUSCULAR HGB CONC 35 g/dL (31-37); MEAN CORPUSCULAR VOLUME 103 fL (79-100); MONO # 0.7 x10^3/uL (0.0-1.1); MONO % 7 % (0-9); NEUT # 7.2 x10^3/uL (1.8-7.7); NEUT % 71 % (31-73); PLATELET COUNT 277 x10^3/uL (140-400); RED BLOOD COUNT 4.08 x10^6/uL (3.50-5.40); RED CELL DISTRIBUTION WIDTH 13.8 % (11.5-14.5); WHITE BLOOD COUNT 10.1 x10^3/uL (4.0-11.0)
--- NOTE | 2019-11-03 10:22 | CONS ---
DATE OF CONSULTATION: 11/03/2019 INFECTIOUS DISEASE CONSULTATION PATIENT'S ROOM: 202. REQUESTING PHYSICIAN: Dr. Nelson. REASON FOR CONSULTATION: Facial abscess. HISTORY OF PRESENT ILLNESS: The patient is a 39-year-old female who is approximately 4-5 days post-vaginal delivery, but then developed headache and increasing leg swelling. She did have preeclampsia and had induction of labor and she was transferred from [facility] with concern for preeclampsia. In the meantime, over the past couple of days, she had developed an area between her eyebrows that became a little bit more painful and then developed some swelling. She denies having any gross fevers or chills or sweats. She has no pain when she moves her eyes, but there is question whether her eyes have some change in vision at times. She has no sinus issues, sore throat or cough. No chest pain. No nausea, vomiting, no diarrhea. No dysuria, frequency or urgency. She does have a history of previous abscesses that had to be lanced. PAST SURGICAL HISTORY: Positive for previous abscesses that needed to be lanced or drained as well as a vaginal delivery. REVIEW OF SYSTEMS: Otherwise negative. ALLERGIES: LISTED PENICILLIN, CEPHALEXIN, AND BACTRIM, ALL OF WHICH CAUSE SWELLING AND SOME DIFFICULTY BREATHING. SOCIAL HISTORY: Denies any tobacco. FAMILY HISTORY: Noncontributory. CURRENT MEDICATIONS: Include magnesium, Xanax, calcium, Lasix, labetalol, Protonix. PHYSICAL EXAMINATION: VITAL SIGNS: She is afebrile, temperature 98.1, pulse 86, respirations 20, blood pressure 129/78, satting 97% on room air. CONSTITUTIONAL: She is sitting upright in bed. She is cooperative. She is in no acute distress. HEENT: Her pupils are equal and reactive to light and accommodation. Extraocular muscles are intact. She had no gross pain with eye movement. She has got a lesion between her eyes. There is an approximately 2 cm area of induration by about a centimeter and half. There is no gross fluctuance currently, but there is some tenderness. Oral cavity, pharynx has some questionable dentition. NECK: Supple with good range of motion. LUNGS: Clear to auscultation bilaterally. HEART: S1, S2. ABDOMEN: Soft, nontender, no guarding or rebound. EXTREMITIES: Without clubbing, cyanosis. She had a trace to 1+ lower extremity edema with some mild redness bilaterally. SKIN: Warm to touch without signs of rash. NEUROLOGIC: She is nonfocal, moves all extremities. PSYCHIATRIC: Affect was appropriate. LABORATORY VALUES: White count on the 6th was 15.6, hemoglobin 12.6, platelets 166, neutrophils were 77, lymphs were 16. Today, her creatinine is 0.6, glucose is 65, AST 71, ALT 105, alkaline phosphatase 143, all slightly increased. IMPRESSION: 1. Facial abscess. 2. ANTIBIOTIC ALLERGIES WITH PENICILLIN, KEFLEX, BACTRIM CAUSES SWELLING AND SHORTNESS OF AIR. 3. preeclampsia. 4. Leukocytosis. RECOMMENDATIONS: Currently, she is not , but we will change for now. We will dose daptomycin. Check a CBC and CMP in the a.m. We will also check a creatine kinase and follow up her response, may need drainage if her lesion worsens. Thank you for the patient's care. Should you have any further questions, please do not hesitate to contact me. CHARLES ALEJANDRA MD DR: BRENNON/demetrio JOB#: [id number] / [id number] [facility]
[2019-11-03] MEDS: MAGNESIUM SULFATE 20GM 500 ML IV SCH ×2 (11:12→20:51)
[2019-11-03] MEDS: DAPTOmycin (GENERIC) IVPB 460 MG in IV NORMAL SALINE 50ML 50 ML IV SCH (11:33)
--- NOTE | 2019-11-03 13:19 | NUR ---
SS following for discharge planning. SS reviewed pt chart and discussed with pt RN. Pt is from home with spouse and is currently on room air. Pt on IV Daptomycin and Magnesium drip. SS will continue to follow for discharge planning.
--- NOTE | 2019-11-03 14:53 | PDOC1 ---
History & Psych Evaluation Date of Service: DOS: DATE: 11/03/19 TIME: 14:53 Source: Source: Caregiver, Chart review, Patient Identification: Identification She is a 39-year-old female who is with her first Chief Complaint: Chief Complaint Depression, anxiety, History of Present Illness: HPI: She is a 39-year-old female who is with her struggling with depression and anxiety. States, she has history of depression and anxiety that she was able to manage. However, presently she was struggling with psychosocial circumstances that were giving her hard time. Superimposed that, when she came across the news of she got very nervous and into mental health turmoil. States, her depression and anxiety has worsened, and she is feeling how she is going to manage her baby with this given problems of depression and anxiety. Depression is reportedly moderate and anxiety is rated as severe. Depression is with irritability, psychomotor retardation, no motivation, and lack of interest. Anxiety is mostly nervousness with panic a ttacks when she feels that her chest is heavy and difficulty catching up her breath. States, her anxiety is far more severe than depression. during interview he appears nervous, tearful, and impulsive. Supportive psychotherapy provided. Aside from that, she denies suicidal or homicidal thoughts. Denies auditory or visual hallucinations. No evidence of nori or hypomania. Past Psychiatric History: History of depression and anxiety. Denies history of previous psychiatric hospitalization. Denies nonsuicidal self-injurious behavior. Denies recurrent suicidal ideation. Past Medical History: Please see medical chart for details Family History: Family history of depression and anxiety Social History: Social History: She lives with her significant other. This is her first baby. She denies legal issues. She denies history of illicit substance use. Current Medications: Current Medications Current Medications Medications (Trade) Dose Ordered Sig/Carmelita Start Time Stop Time Status Last Admin Dose Admin Acetaminophen (Tylenol) 650 mg PRN Q6HRS PRN 11/03/19 01:30 Alprazolam (Xanax) 0.5 mg DAILY 11/03/19 09:00 11/03/19 08:47 0.5 MG Calcium Gluconate (Calcium Gluconate) 1,000 mg 1X PRN PRN 11/03/19 08:15 Daptomycin 460 mg/ Sodium Chloride 50 ml @ 100 mls/hr Q24H 11/03/19 10:00 11/03/19 11:33 100 MLS/HR Furosemide (Lasix) 20 mg DAILY 11/03/19 09:00 11/03/19 08:47 20 MG Labetalol HCl (Normodyne Iv Push) 20 mg PRN Q4HRS PRN 11/03/19 00:45 Magnesium Sulfate 500 ml @ 50 mls/hr Q10H 11/03/19 08:00 11/03/19 11:12 50 MLS/HR Olanzapine (ZyPREXA) 5 mg HS 11/03/19 21:00 UNV Pantoprazole Sodium (Protonix) 40 mg DAILYAC 11/03/19 07:30 11/03/19 08:47 40 MG Sertraline HCl (Zoloft) 25 mg DAILY 11/04/19 09:00 UNV Allergies: Allergies: Coded Allergies: Penicillins (Verified Allergy, Severe, Swelling, 10/28/19) cephalexin (Verified Allergy, Intermediate, 10/28/19) sulfamethoxazole (Verified Allergy, Intermediate, Palpitations, 10/28/19) trimethoprim (Verified Allergy, Intermediate, Palpitations, 10/28/19) Mental Status Examination: Mental Status Examination female appears her stated age Cooperative and interactive Alert and oriented Thought processes goal-directed Denies auditory or visual hallucinations Denies suicidal or homicidal thoughts No abnormal perception noted Mood is depressed Affect is dysthymic Insight is good Judgment is good Impulse control is good Attention span and concentration fair Recent and remote memory intact. ROS: Psychiatric review of system is otherwise negative except for stated above Physical Exam: Refer to Physician's note. LEGAL PARAPROFESSIONAL: No focal deficit MSK: No EPS, TDK, or abnormal involuntary movements Vitals: Vitals Vital Signs Date Time Temp Pulse Resp B/P (MAP) Pulse Ox O2 Delivery O2 Flow Rate FiO2 11/03/19 12:00 Room Air 11/03/19 11:00 97.9 90 21 132/87 (102) 98 97.9 Labs: Labs Laboratory Tests Test 11/03/19 06:05 11/03/19 06:39 White Blood Count 10.1 x10^3/uL (4.0-11.0) Red Blood Count 4.08 x10^6/uL (3.50-5.40) Hemoglobin 14.5 g/dL (12.0-15.5) Hematocrit 41.8 % (36.0-47.0) Mean Corpuscular Volume 103 fL (79-100) Mean Corpuscular Hemoglobin 36 pg (25-35) Mean Corpuscular Hemoglobin Concent 35 g/dL (31-37) Red Cell Distribution Width 13.8 % (11.5-14.5) Platelet Count 277 x10^3/uL (140-400) Neutrophils (%) (Auto) 71 % (31-73) Lymphocytes (%) (Auto) 19 % (24-48) Monocytes (%) (Auto) 7 % (0-9) Eosinophils (%) (Auto) 3 % (0-3) Basophils (%) (Auto) 1 % (0-3) Neutrophils # (Auto) 7.2 x10^3/uL (1.8-7.7) Lymphocytes # (Auto) 1.9 x10^3/uL (1.0-4.8) Monocytes # (Auto) 0.7 x10^3/uL (0.0-1.1) Eosinophils # (Auto) 0.3 x10^3/uL (0.0-0.7) Basophils # (Auto) 0.1 x10^3/uL (0.0-0.2) Sodium Level 138 mmol/L (136-145) Potassium Level 4.1 mmol/L (3.5-5.1) Chloride Level 105 mmol/L (98-107) Carbon Dioxide Level 23 mmol/L (21-32) Anion Gap 10 (6-14) Blood Urea Nitrogen 10 mg/dL (7-20) Creatinine 0.6 mg/dL (0.6-1.0) Estimated GFR (Cockcroft-Gault) 110.2 BUN/Creatinine Ratio 17 (6-20) Glucose Level 85 mg/dL (70-99) Calcium Level 8.6 mg/dL (8.5-10.1) Magnesium Level 2.8 mg/dL (1.8-2.4) Total Bilirubin 0.5 mg/dL (0.2-1.0) Aspartate Amino Transf (AST/SGOT) 71 U/L (15-37) Alanine Aminotransferase (ALT/SGPT) 105 U/L (14-59) Alkaline Phosphatase 143 U/L (46-116) Creatine Kinase 335 U/L (26-192) Total Protein 6.4 g/dL (6.4-8.2) Albumin 2.7 g/dL (3.4-5.0) Albumin/Globulin Ratio 0.7 (1.0-1.7) Urine Collection Type Unknown Urine Color Yellow Urine Clarity Clear Urine pH 6.5 (<5.0-8.0) Urine Specific [place] 1.025 (1.000-1.030) Urine Protein Negative mg/dL (NEG-TRACE) Urine Glucose (UA) Negative mg/dL (NEG) Urine Ketones (Stick) Negative mg/dL (NEG) Urine Blood Moderate (NEG) Urine Nitrite Negative (NEG) Urine Bilirubin Negative (NEG) Urine Urobilinogen Dipstick 1.0 mg/dL (0.2 mg/dL) Urine Leukocyte Esterase Negative (NEG) Urine RBC 1-2 /HPF (0-2) Urine WBC Occ /HPF (0-4) Urine Squamous Epithelial Cells Occ /LPF Urine Bacteria 0 /HPF (0-FEW) Laboratory Tests Test 11/03/19 06:05 11/03/19 06:39 White Blood Count 10.1 x10^3/uL (4.0-11.0) Red Blood Count 4.08 x10^6/uL (3.50-5.40) Hemoglobin 14.5 g/dL (12.0-15.5) Hematocrit 41.8 % (36.0-47.0) Mean Corpuscular Volume 103 fL (79-100) Mean Corpuscular Hemoglobin 36 pg (25-35) Mean Corpuscular Hemoglobin Concent 35 g/dL (31-37) Red Cell Distribution Width 13.8 % (11.5-14.5) Platelet Count 277 x10^3/uL (140-400) Neutrophils (%) (Auto) 71 % (31-73) Lymphocytes (%) (Auto) 19 % (24-48) Monocytes (%) (Auto) 7 % (0-9) Eosinophils (%) (Auto) 3 % (0-3) Basophils (%) (Auto) 1 % (0-3) Neutrophils # (Auto) 7.2 x10^3/uL (1.8-7.7) Lymphocytes # (Auto) 1.9 x10^3/uL (1.0-4.8) Monocytes # (Auto) 0.7 x10^3/uL (0.0-1.1) Eosinophils # (Auto) 0.3 x10^3/uL (0.0-0.7) Basophils # (Auto) 0.1 x10^3/uL (0.0-0.2) Sodium Level 138 mmol/L (136-145) Potassium Level 4.1 mmol/L (3.5-5.1) Chloride Level 105 mmol/L (98-107) Carbon Dioxide Level 23 mmol/L (21-32) Anion Gap 10 (6-14) Blood Urea Nitrogen 10 mg/dL (7-20) Creatinine 0.6 mg/dL (0.6-1.0) Estimated GFR (Cockcroft-Gault) 110.2 BUN/Creatinine Ratio 17 (6-20) Glucose Level 85 mg/dL (70-99) Calcium Level 8.6 mg/dL (8.5-10.1) Magnesium Level 2.8 mg/dL (1.8-2.4) Total Bilirubin 0.5 mg/dL (0.2-1.0) Aspartate Amino Transf (AST/SGOT) 71 U/L (15-37) Alanine Aminotransferase (ALT/SGPT) 105 U/L (14-59) Alkaline Phosphatase 143 U/L (46-116) Creatine Kinase 335 U/L (26-192) Total Protein 6.4 g/dL (6.4-8.2) Albumin 2.7 g/dL (3.4-5.0) Albumin/Globulin Ratio 0.7 (1.0-1.7) Urine Collection Type Unknown Urine Color Yellow Urine Clarity Clear Urine pH 6.5 (<5.0-8.0) Urine Specific [place] 1.025 (1.000-1.030) Urine Protein Negative mg/dL (NEG-TRACE) Urine Glucose (UA) Negative mg/dL (NEG) Urine Ketones (Stick) Negative mg/dL (NEG) Urine Blood Moderate (NEG) Urine Nitrite Negative (NEG) Urine Bilirubin Negative (NEG) Urine Urobilinogen Dipstick 1.0 mg/dL (0.2 mg/dL) Urine Leukocyte Esterase Negative (NEG) Urine RBC 1-2 /HPF (0-2) Urine WBC Occ /HPF (0-4) Urine Squamous Epithelial Cells Occ /LPF Urine Bacteria 0 /HPF (0-FEW) Diagnosis: Diagnosis: 1major depressive disorder, recurrent, moderate 2rule out depression 3generalized anxiety disorder 4panic attacks Assessment: She is a 39-year-old female with her first struggling with depression and anxiety. She has had depression and anxiety prior to and during . She needs help with her depression and anxiety so that she would be able to take care of her baby efficiently. She is in agreement to start psychotropics. She adamantly denies plans of breast-feeding. Plan: Start Zoloft 25 mg daily for depression and anxiety. *Olanzapine 5 mg daily for anxiety, insomnia, panic attacks, and depression adjunct. Risks, benefits, alternatives of the treatment are discussed. She is in agreement with plan and voiced understanding. Adverse drug reaction of the medications with black box warning are also discussed. Psychoeducation provided. Supportive psychotherapy provided. Thank you for involving inpatient care. ZAYRA LYNCH MD Nov 03, 2019 14:53
--- NOTE | 2019-11-03 17:16 | PDOC1 ---
History and Physical Date of Admission Date of Admission 11/03/2019 Identification/Chief Complaint Chief Complaint I was sent for swelling in my legs Source Source: Chart review, Patient History of Present Illness History of Present Illness Patient is a 39 year old female who delivered about 5 days ago a baby girl. She was diagnosed with preeclampsia during her . She delivered early as a ocnsequnce. Afer her she has been feeling quite depressed and sad, she is complaining of edema of her lower extremities. She denies headache blurred vision, no history of seizure like activity, her BP seems to be normal high at the time of my visit. and she does not have focal neurolgical deficits. She was transferred from [facility] for suspected post preeclampsia. Plan of care discussed in detail. I think at this point her biggest issue is mood disorder and also a suspected facil abscess. She denies fever chills, no diaphoresis or signs of toxicity evident during myencounter, All her concerns were addressed to the best of my abilities. Past Medical History Cardiovascular: No pertinent hx Pulmonary: No pertinent hx Past Surgical History Past Surgical History: No pertinent history Current Medications Current Medications Current Medications Medications (Trade) Dose Ordered Sig/Carmelita Start Time Stop Time Status Last Admin Dose Admin Acetaminophen (Tylenol) 650 mg PRN Q6HRS PRN 11/03/19 01:30 11/03/19 15:33 650 MG Alprazolam (Xanax) 0.5 mg DAILY 11/03/19 09:00 11/03/19 08:47 0.5 MG Calcium Gluconate (Calcium Gluconate) 1,000 mg 1X PRN PRN 11/03/19 08:15 Daptomycin 460 mg/ Sodium Chloride 50 ml @ 100 mls/hr Q24H 11/03/19 10:00 11/03/19 11:33 100 MLS/HR Furosemide (Lasix) 20 mg DAILY 11/03/19 09:00 11/03/19 08:47 20 MG Labetalol HCl (Normodyne Iv Push) 20 mg PRN Q4HRS PRN 11/03/19 00:45 Magnesium Sulfate 500 ml @ 50 mls/hr Q10H 11/03/19 08:00 11/03/19 11:12 50 MLS/HR Olanzapine (ZyPREXA) 5 mg HS 11/03/19 21:00 Pantoprazole Sodium (Protonix) 40 mg DAILYAC 11/03/19 07:30 11/03/19 08:47 40 MG Sertraline HCl (Zoloft) 25 mg DAILY 11/04/19 09:00 Allergies Allergies Allergies Coded Allergies Type Severity Reaction Last Updated Verified Penicillins Allergy Severe Swelling 10/28/19 Yes cephalexin Allergy Intermediate 10/28/19 Yes sulfamethoxazole Allergy Intermediate Palpitations 10/28/19 Yes trimethoprim Allergy Intermediate Palpitations 10/28/19 Yes ROS Review of System CONSTITUTIONAL: No fever or chills EYES: No recent changes SKIN: No rash or itching CARDIOVASCULAR: No chest pain, syncope, palpitations, or edema RESPIRATORY: No SOB or cough GASTROINTESTINAL: No nausea, vomiting or abdominal pain NEUROLOGICAL: No headaches or weakness ENDOCRINE: No cold or heat intolerance GENITOURINARY: No urgency or frequency of urination MUSCULOSKELETAL: No back pain or joint pain LYMPHATICS: No enlarged lymph nodes PSYCHIATRIC: No anxiety or depression Physical Exam Physical Exam GEN.: No apparent distress. Alert and oriented. HEENT: Head is normocephalic, atraumatic NECK: Supple. LUNGS: Clear to auscultation. HEART: RRR, S1, S2 present. Peripheral pulses intact ABDOMEN: Soft, nontender. Positive bowel sounds. EXTREMITIES: Without any cyanosis. NEUROLOGIC: Normal speech, normal tone PSYCHIATRIC: Normal affect, normal mood. SKIN: No ulcerations Vitals Vitals Vital Signs Date Time Temp Pulse Resp B/P (MAP) Pulse Ox O2 Delivery O2 Flow Rate FiO2 11/03/19 16:00 Room Air 11/03/19 15:00 98.0 84 21 114/73 (87) 99 98.0 Labs Labs Laboratory Tests Test 11/03/19 06:05 11/03/19 06:39 White Blood Count 10.1 x10^3/uL (4.0-11.0) Red Blood Count 4.08 x10^6/uL (3.50-5.40) Hemoglobin 14.5 g/dL (12.0-15.5) Hematocrit 41.8 % (36.0-47.0) Mean Corpuscular Volume 103 fL (79-100) Mean Corpuscular Hemoglobin 36 pg (25-35) Mean Corpuscular Hemoglobin Concent 35 g/dL (31-37) Red Cell Distribution Width 13.8 % (11.5-14.5) Platelet Count 277 x10^3/uL (140-400) Neutrophils (%) (Auto) 71 % (31-73) Lymphocytes (%) (Auto) 19 % (24-48) Monocytes (%) (Auto) 7 % (0-9) Eosinophils (%) (Auto) 3 % (0-3) Basophils (%) (Auto) 1 % (0-3) Neutrophils # (Auto) 7.2 x10^3/uL (1.8-7.7) Lymphocytes # (Auto) 1.9 x10^3/uL (1.0-4.8) Monocytes # (Auto) 0.7 x10^3/uL (0.0-1.1) Eosinophils # (Auto) 0.3 x10^3/uL (0.0-0.7) Basophils # (Auto) 0.1 x10^3/uL (0.0-0.2) Sodium Level 138 mmol/L (136-145) Potassium Level 4.1 mmol/L (3.5-5.1) Chloride Level 105 mmol/L (98-107) Carbon Dioxide Level 23 mmol/L (21-32) Anion Gap 10 (6-14) Blood Urea Nitrogen 10 mg/dL (7-20) Creatinine 0.6 mg/dL (0.6-1.0) Estimated GFR (Cockcroft-Gault) 110.2 BUN/Creatinine Ratio 17 (6-20) Glucose Level 85 mg/dL (70-99) Calcium Level 8.6 mg/dL (8.5-10.1) Magnesium Level 2.8 mg/dL (1.8-2.4) Total Bilirubin 0.5 mg/dL (0.2-1.0) Aspartate Amino Transf (AST/SGOT) 71 U/L (15-37) Alanine Aminotransferase (ALT/SGPT) 105 U/L (14-59) Alkaline Phosphatase 143 U/L (46-116) Creatine Kinase 335 U/L (26-192) Total Protein 6.4 g/dL (6.4-8.2) Albumin 2.7 g/dL (3.4-5.0) Albumin/Globulin Ratio 0.7 (1.0-1.7) Urine Collection Type Unknown Urine Color Yellow Urine Clarity Clear Urine pH 6.5 (<5.0-8.0) Urine Specific [place] 1.025 (1.000-1.030) Urine Protein Negative mg/dL (NEG-TRACE) Urine Glucose (UA) Negative mg/dL (NEG) Urine Ketones (Stick) Negative mg/dL (NEG) Urine Blood Moderate (NEG) Urine Nitrite Negative (NEG) Urine Bilirubin Negative (NEG) Urine Urobilinogen Dipstick 1.0 mg/dL (0.2 mg/dL) Urine Leukocyte Esterase Negative (NEG) Urine RBC 1-2 /HPF (0-2) Urine WBC Occ /HPF (0-4) Urine Squamous Epithelial Cells Occ /LPF Urine Bacteria 0 /HPF (0-FEW) Laboratory Tests Test 11/03/19 06:05 11/03/19 06:39 White Blood Count 10.1 x10^3/uL (4.0-11.0) Red Blood Count 4.08 x10^6/uL (3.50-5.40) Hemoglobin 14.5 g/dL (12.0-15.5) Hematocrit 41.8 % (36.0-47.0) Mean Corpuscular Volume 103 fL (79-100) Mean Corpuscular Hemoglobin 36 pg (25-35) Mean Corpuscular Hemoglobin Concent 35 g/dL (31-37) Red Cell Distribution Width 13.8 % (11.5-14.5) Platelet Count 277 x10^3/uL (140-400) Neutrophils (%) (Auto) 71 % (31-73) Lymphocytes (%) (Auto) 19 % (24-48) Monocytes (%) (Auto) 7 % (0-9) Eosinophils (%) (Auto) 3 % (0-3) Basophils (%) (Auto) 1 % (0-3) Neutrophils # (Auto) 7.2 x10^3/uL (1.8-7.7) Lymphocytes # (Auto) 1.9 x10^3/uL (1.0-4.8) Monocytes # (Auto) 0.7 x10^3/uL (0.0-1.1) Eosinophils # (Auto) 0.3 x10^3/uL (0.0-0.7) Basophils # (Auto) 0.1 x10^3/uL (0.0-0.2) Sodium Level 138 mmol/L (136-145) Potassium Level 4.1 mmol/L (3.5-5.1) Chloride Level 105 mmol/L (98-107) Carbon Dioxide Level 23 mmol/L (21-32) Anion Gap 10 (6-14) Blood Urea Nitrogen 10 mg/dL (7-20) Creatinine 0.6 mg/dL (0.6-1.0) Estimated GFR (Cockcroft-Gault) 110.2 BUN/Creatinine Ratio 17 (6-20) Glucose Level 85 mg/dL (70-99) Calcium Level 8.6 mg/dL (8.5-10.1) Magnesium Level 2.8 mg/dL (1.8-2.4) Total Bilirubin 0.5 mg/dL (0.2-1.0) Aspartate Amino Transf (AST/SGOT) 71 U/L (15-37) Alanine Aminotransferase (ALT/SGPT) 105 U/L (14-59) Alkaline Phosphatase 143 U/L (46-116) Creatine Kinase 335 U/L (26-192) Total Protein 6.4 g/dL (6.4-8.2) Albumin 2.7 g/dL (3.4-5.0) Albumin/Globulin Ratio 0.7 (1.0-1.7) Urine Collection Type Unknown Urine Color Yellow Urine Clarity Clear Urine pH 6.5 (<5.0-8.0) Urine Specific [place] 1.025 (1.000-1.030) Urine Protein Negative mg/dL (NEG-TRACE) Urine Glucose (UA) Negative mg/dL (NEG) Urine Ketones (Stick) Negative mg/dL (NEG) Urine Blood Moderate (NEG) Urine Nitrite Negative (NEG) Urine Bilirubin Negative (NEG) Urine Urobilinogen Dipstick 1.0 mg/dL (0.2 mg/dL) Urine Leukocyte Esterase Negative (NEG) Urine RBC 1-2 /HPF (0-2) Urine WBC Occ /HPF (0-4) Urine Squamous Epithelial Cells Occ /LPF Urine Bacteria 0 /HPF (0-FEW) VTE Prophylaxis Ordered VTE Prophylaxis Devices: No VTE Pharmacological Prophylaxi: Yes Assessment/Plan Assessment/Plan post depression post preeclampsia? Leukocytosis, etiology undetermined Facial abscess? Plan: follow recommendations from consultant in ergonomics and safety will place a consult for Psych evaluation reassess in the am further recommendations based on clinical course Magnesium as per OB DVT prophylaxis: Lovenox Justifications for Admission Other Justification ELFEGO KRISHNAMURTHY MD Nov 03, 2019 17:16
[2019-11-03] MEDS ORDERED: ENOXAPARIN 40 MG/0.4 ML SYRINGE. SQ SCH (18:00)
[2019-11-03] MEDS ORDERED: OLANZapine 5 MG TABLET PO SCH (21:00)
[2019-11-04 02:22] VITALS: BP 150/81
[2019-11-04 05:42] LABS: BASO % 1 % (0-3); EOS # 0.3 x10^3/uL (0.0-0.7); EOS % 4 % (0-3); HEMATOCRIT 39.9 % (36.0-47.0); HEMOGLOBIN 13.7 g/dL (12.0-15.5); LYMPH # 1.9 x10^3/uL (1.0-4.8); LYMPH % 23 % (24-48); MEAN CORPUSCULAR HEMOGLOBIN 35 pg (25-35); MEAN CORPUSCULAR HGB CONC 34 g/dL (31-37); MEAN CORPUSCULAR VOLUME 103 fL (79-100); MONO # 0.7 x10^3/uL (0.0-1.1); MONO % 9 % (0-9); NEUT # 5.4 x10^3/uL (1.8-7.7); NEUT % 64 % (31-73); PLATELET COUNT 261 x10^3/uL (140-400); RED BLOOD COUNT 3.89 x10^6/uL (3.50-5.40); RED CELL DISTRIBUTION WIDTH 13.7 % (11.5-14.5); WHITE BLOOD COUNT 8.4 x10^3/uL (4.0-11.0)
[2019-11-04 05:59] LABS: ALBUMIN 2.6 g/dL (3.4-5.0); ALBUMIN/GLOBULIN RATIO 0.7 (1.0-1.7); CALCIUM 7.3 mg/dL (8.5-10.1); CREATININE 0.7 mg/dL (0.6-1.0); GFR 92.2; POTASSIUM 3.9 mmol/L (3.5-5.1); TOTAL BILIRUBIN 0.3 mg/dL (0.2-1.0); TOTAL PROTEIN 6.2 g/dL (6.4-8.2)
[2019-11-04] MEDS: MAGNESIUM SULFATE 20GM 500 ML IV SCH (06:00)
[2019-11-04 07:17] VITALS: BP 125/78
[2019-11-04] MEDS: PANTOPRAZOLE 40 MG TABLET.DR. PO SCH (08:13)
[2019-11-04] MEDS: ALPRAZolam 0.5 MG TABLET PO SCH (08:13)
[2019-11-04] MEDS: FUROSEMIDE 20 MG TABLET PO SCH (08:14)
--- NOTE | 2019-11-04 08:36 | PDOC ---
Infectious Disease Note Subjective Subjective better over all with less pain between eyebrows but area more concentrated No F/C/S//N/v/d/eating ROS ROS o/w neg Vital Sign Vital Signs Vital Signs Date Time Temp Pulse Resp B/P (MAP) Pulse Ox O2 Delivery O2 Flow Rate FiO2 11/04/19 07:17 97.9 77 20 125/78 (94) 98 Room Air 97.9 Physical Exam PHYSICAL EXAM CONSTITUTIONAL: She is sitting upright in bed. She is cooperative. She is in no acute distress. HEENT: Her pupils are equal and reactive to light and accommodation. Extraocular muscles are intact. She had no gross pain with eye movement. She has a lesion between her eyes. There is an approximately 2 cm area of induration by about a centimeter and half. There is no gross fluctuance has developed some fluctuance, but there is some tenderness. Oral cavity, pharynx has some questionable dentition. NECK: Supple with good range of motion. LUNGS: Clear to auscultation bilaterally. HEART: S1, S2. ABDOMEN: Soft, nontender, no guarding or rebound. EXTREMITIES: Without clubbing, cyanosis. She had a trace to 1+ lower extremity edema with some mild redness bilaterally. SKIN: Warm to touch without signs of rash. NEUROLOGIC: She is nonfocal, moves all extremities. PSYCHIATRIC: Affect was appropriate. Labs Lab Laboratory Tests Test 11/04/19 05:00 White Blood Count 8.4 x10^3/uL (4.0-11.0) Red Blood Count 3.89 x10^6/uL (3.50-5.40) Hemoglobin 13.7 g/dL (12.0-15.5) Hematocrit 39.9 % (36.0-47.0) Mean Corpuscular Volume 103 fL (79-100) Mean Corpuscular Hemoglobin 35 pg (25-35) Mean Corpuscular Hemoglobin Concent 34 g/dL (31-37) Red Cell Distribution Width 13.7 % (11.5-14.5) Platelet Count 261 x10^3/uL (140-400) Neutrophils (%) (Auto) 64 % (31-73) Lymphocytes (%) (Auto) 23 % (24-48) Monocytes (%) (Auto) 9 % (0-9) Eosinophils (%) (Auto) 4 % (0-3) Basophils (%) (Auto) 1 % (0-3) Neutrophils # (Auto) 5.4 x10^3/uL (1.8-7.7) Lymphocytes # (Auto) 1.9 x10^3/uL (1.0-4.8) Monocytes # (Auto) 0.7 x10^3/uL (0.0-1.1) Eosinophils # (Auto) 0.3 x10^3/uL (0.0-0.7) Basophils # (Auto) 0.0 x10^3/uL (0.0-0.2) Sodium Level 139 mmol/L (136-145) Potassium Level 3.9 mmol/L (3.5-5.1) Chloride Level 106 mmol/L (98-107) Carbon Dioxide Level 24 mmol/L (21-32) Anion Gap 9 (6-14) Blood Urea Nitrogen 10 mg/dL (7-20) Creatinine 0.7 mg/dL (0.6-1.0) Estimated GFR (Cockcroft-Gault) 92.2 BUN/Creatinine Ratio 14 (6-20) Glucose Level 84 mg/dL (70-99) Calcium Level 7.3 mg/dL (8.5-10.1) Magnesium Level 6.1 mg/dL (1.8-2.4) Total Bilirubin 0.3 mg/dL (0.2-1.0) Aspartate Amino Transf (AST/SGOT) 44 U/L (15-37) Alanine Aminotransferase (ALT/SGPT) 82 U/L (14-59) Alkaline Phosphatase 138 U/L (46-116) Total Protein 6.2 g/dL (6.4-8.2) Albumin 2.6 g/dL (3.4-5.0) Albumin/Globulin Ratio 0.7 (1.0-1.7) Objective Assessment Facial abscess Abx allergies - PCN/Keflex/Bactrim - swelling/SOA Post Pre-eclampsia Leukocytosis - better transaminitis - better elevated Ck Plan Plan of Care Consult surgery for lancing I and D Repeat CK with elevation prior to Dapto Currently not breast feeding Dose Daptomycin Check CBC/ck CBC/CMP in am F/u response CHARLES ALEJANDRA MD Nov 04, 2019 08:36
[2019-11-04] MEDS ORDERED: SERTRALINE 25 MG TABLET. PO SCH (09:00)
--- NOTE | 2019-11-04 09:52 | PDOC2 ---
SECOBAR AHUMADA DIESEL TRUCK TECHNICIAN 11/04/19 0952: CONSULT Date of Consult Date of Consult DATE: 11/04/19 TIME: 09:47 Reason for Consult Reason for Consult: facial abscess Referring Physician Referring Physician: Dr Wick Identification/Chief Complaint Chief Complaint htn Source Source: Chart review, Patient History of Present Illness Reason for Visit: Tx from [facility] for suspected post preeclampsia symptoms. Noted to have an area on bridge of nose with swelling and pain. Surgical consult for possible I&D She has had abscesses before--did have I&D to area on right forehead in past Feels a little better today Past Medical History Cardiovascular: No pertinent hx Pulmonary: No pertinent hx Past Surgical History Past Surgical History: No pertinent history Family History Family History: Other (noncontributory to current illness ) Social History <1 pack per day ALCOHOL: occassional Drugs: None Lives: with Family Current Medications Current Medications Current Medications Alprazolam (Xanax) 0.5 mg DAILY PO Last administered on 11/04/19at 08:13; Start 11/03/19 at 09:00 Furosemide (Lasix) 20 mg DAILY PO Last administered on 11/04/19at 08:14; Start 11/03/19 at 09:00 Pantoprazole Sodium (Protonix) 40 mg DAILYAC PO Last administered on 11/04/19at 08:13; Start 11/03/19 at 07:30 Labetalol HCl (Normodyne Iv Push) 20 mg PRN Q4HRS PRN IVP SBP>150; Start 11/03/19 at 00:45 Magnesium Sulfate 100 ml @ 25 mls/hr 1X ONCE IV Last administered on 11/03/19at 01:29; Start 11/03/19 at 01:30; Stop 11/03/19 at 05:29; Status DC Acetaminophen (Tylenol) 650 mg PRN Q6HRS PRN PO MILD PAIN 1-3 Last administered on 11/03/19at 15:33; Start 11/03/19 at 01:30 Magnesium Sulfate 500 ml @ 50 mls/hr Q10H IV Last administered on 11/04/19at 06:00; Start 11/03/19 at 08:00; Stop 11/04/19 at 08:59; Status DC Calcium Gluconate (Calcium Gluconate) 1,000 mg 1X PRN PRN IVP MAGNESIUM TOXICITY; Start 11/03/19 at 08:15; Stop 11/04/19 at 08:59; Status DC Daptomycin 460 mg/ Sodium Chloride 50 ml @ 100 mls/hr Q24H IV Last administered on 11/03/19at 11:33; Start 11/03/19 at 10:00 Sertraline HCl (Zoloft) 25 mg DAILY PO Last administered on 11/04/19at 08:13; Start 11/04/19 at 09:00 Olanzapine (ZyPREXA) 5 mg HS PO Last administered on 11/03/19at 20:41; Start 11/03/19 at 21:00 Enoxaparin Sodium (Lovenox 40mg Syringe) 40 mg Q24H SQ Last administered on 11/03/19at 18:11; Start 11/03/19 at 18:00 Active Scripts Active Alprazolam 0.5 Mg Tablet 1 Tab PO DAILY Furosemide 20 Mg Tablet 20 Mg PO DAILY Reported Magnesium Sulfate 4 Gm/50 Ml Piggyback 4 Gm IV 1X Ambien (Zolpidem Tartrate) 5 Mg Tablet 5 Mg PO PRN QHS PRN Prilosec Otc (Omeprazole Magnesium) 20 Mg Tablet. 1 Tab PO DAILY 30 Days Allergies Allergies: Coded Allergies: Penicillins (Verified Allergy, Severe, Swelling, 10/28/19) cephalexin (Verified Allergy, Intermediate, 10/28/19) sulfamethoxazole (Verified Allergy, Intermediate, Palpitations, 10/28/19) trimethoprim (Verified Allergy, Intermediate, Palpitations, 10/28/19) ROS General: No: Chills, Other (fevers ) PSYCHOLOGICAL ROS: No: Anxiety, Depression Eyes: No Decreased vision, No Double vision HEENT: YES: Heacaches; No: Sore Throat Hematological and Lymphatic: No: Bleeding Problems, Blood Clots Respiratory: No: Cough, Shortness of breath Cardiovascular: No Chest Pain, No Palpitations Gastrointestinal: No Nausea, No Vomiting, No Abdominal Pain Genitourinary: No Dysuria, No Hematuria Musculoskeletal: No Muscle Pain, No Muscular Weakness Neurological: No Impaired Coord/balance, No Numbness/Tingling Skin: Yes Other (see hpi) Physical Exam General: Alert, Oriented X3, Cooperative HEENT: Other (induration, erythema to bridge of nose, no drainage, no flutuance currently ) Heart: Regular rate, Normal S1, Normal S2 Abdomen: Soft, No tenderness Extremities: No cyanosis, No edema Skin: No breakdown Neuro: Normal gait, Normal speech Psych/Mental Status: Mental status NL, Mood NL MUSCULOSKELETAL: No deformity, No swelling Vitals VITALS Vital Signs Date Time Temp Pulse Resp B/P (MAP) Pulse Ox O2 Delivery O2 Flow Rate FiO2 11/04/19 08:00 Room Air 11/04/19 07:17 97.9 77 20 125/78 (94) 98 97.9 Labs Labs Laboratory Tests Test 11/03/19 06:05 11/03/19 06:39 11/04/19 05:00 White Blood Count 10.1 x10^3/uL (4.0-11.0) 8.4 x10^3/uL (4.0-11.0) Red Blood Count 4.08 x10^6/uL (3.50-5.40) 3.89 x10^6/uL (3.50-5.40) Hemoglobin 14.5 g/dL (12.0-15.5) 13.7 g/dL (12.0-15.5) Hematocrit 41.8 % (36.0-47.0) 39.9 % (36.0-47.0) Mean Corpuscular Volume 103 fL (79-100) 103 fL (79-100) Mean Corpuscular Hemoglobin 36 pg (25-35) 35 pg (25-35) Mean Corpuscular Hemoglobin Concent 35 g/dL (31-37) 34 g/dL (31-37) Red Cell Distribution Width 13.8 % (11.5-14.5) 13.7 % (11.5-14.5) Platelet Count 277 x10^3/uL (140-400) 261 x10^3/uL (140-400) Neutrophils (%) (Auto) 71 % (31-73) 64 % (31-73) Lymphocytes (%) (Auto) 19 % (24-48) 23 % (24-48) Monocytes (%) (Auto) 7 % (0-9) 9 % (0-9) Eosinophils (%) (Auto) 3 % (0-3) 4 % (0-3) Basophils (%) (Auto) 1 % (0-3) 1 % (0-3) Neutrophils # (Auto) 7.2 x10^3/uL (1.8-7.7) 5.4 x10^3/uL (1.8-7.7) Lymphocytes # (Auto) 1.9 x10^3/uL (1.0-4.8) 1.9 x10^3/uL (1.0-4.8) Monocytes # (Auto) 0.7 x10^3/uL (0.0-1.1) 0.7 x10^3/uL (0.0-1.1) Eosinophils # (Auto) 0.3 x10^3/uL (0.0-0.7) 0.3 x10^3/uL (0.0-0.7) Basophils # (Auto) 0.1 x10^3/uL (0.0-0.2) 0.0 x10^3/uL (0.0-0.2) Sodium Level 138 mmol/L (136-145) 139 mmol/L (136-145) Potassium Level 4.1 mmol/L (3.5-5.1) 3.9 mmol/L (3.5-5.1) Chloride Level 105 mmol/L (98-107) 106 mmol/L (98-107) Carbon Dioxide Level 23 mmol/L (21-32) 24 mmol/L (21-32) Anion Gap 10 (6-14) 9 (6-14) Blood Urea Nitrogen 10 mg/dL (7-20) 10 mg/dL (7-20) Creatinine 0.6 mg/dL (0.6-1.0) 0.7 mg/dL (0.6-1.0) Estimated GFR (Cockcroft-Gault) 110.2 92.2 BUN/Creatinine Ratio 17 (6-20) 14 (6-20) Glucose Level 85 mg/dL (70-99) 84 mg/dL (70-99) Calcium Level 8.6 mg/dL (8.5-10.1) 7.3 mg/dL (8.5-10.1) Magnesium Level 2.8 mg/dL (1.8-2.4) 6.1 mg/dL (1.8-2.4) Total Bilirubin 0.5 mg/dL (0.2-1.0) 0.3 mg/dL (0.2-1.0) Aspartate Amino Transf (AST/SGOT) 71 U/L (15-37) 44 U/L (15-37) Alanine Aminotransferase (ALT/SGPT) 105 U/L (14-59) 82 U/L (14-59) Alkaline Phosphatase 143 U/L (46-116) 138 U/L (46-116) Creatine Kinase 335 U/L (26-192) 251 U/L (26-192) Total Protein 6.4 g/dL (6.4-8.2) 6.2 g/dL (6.4-8.2) Albumin 2.7 g/dL (3.4-5.0) 2.6 g/dL (3.4-5.0) Albumin/Globulin Ratio 0.7 (1.0-1.7) 0.7 (1.0-1.7) Urine Collection Type Unknown Urine Color Yellow Urine Clarity Clear Urine pH 6.5 (<5.0-8.0) Urine Specific [place] 1.025 (1.000-1.030) Urine Protein Negative mg/dL (NEG-TRACE) Urine Glucose (UA) Negative mg/dL (NEG) Urine Ketones (Stick) Negative mg/dL (NEG) Urine Blood Moderate (NEG) Urine Nitrite Negative (NEG) Urine Bilirubin Negative (NEG) Urine Urobilinogen Dipstick 1.0 mg/dL (0.2 mg/dL) Urine Leukocyte Esterase Negative (NEG) Urine RBC 1-2 /HPF (0-2) Urine WBC Occ /HPF (0-4) Urine Squamous Epithelial Cells Occ /LPF Urine Bacteria 0 /HPF (0-FEW) Laboratory Tests Test 11/04/19 05:00 White Blood Count 8.4 x10^3/uL (4.0-11.0) Red Blood Count 3.89 x10^6/uL (3.50-5.40) Hemoglobin 13.7 g/dL (12.0-15.5) Hematocrit 39.9 % (36.0-47.0) Mean Corpuscular Volume 103 fL (79-100) Mean Corpuscular Hemoglobin 35 pg (25-35) Mean Corpuscular Hemoglobin Concent 34 g/dL (31-37) Red Cell Distribution Width 13.7 % (11.5-14.5) Platelet Count 261 x10^3/uL (140-400) Neutrophils (%) (Auto) 64 % (31-73) Lymphocytes (%) (Auto) 23 % (24-48) Monocytes (%) (Auto) 9 % (0-9) Eosinophils (%) (Auto) 4 % (0-3) Basophils (%) (Auto) 1 % (0-3) Neutrophils # (Auto) 5.4 x10^3/uL (1.8-7.7) Lymphocytes # (Auto) 1.9 x10^3/uL (1.0-4.8) Monocytes # (Auto) 0.7 x10^3/uL (0.0-1.1) Eosinophils # (Auto) 0.3 x10^3/uL (0.0-0.7) Basophils # (Auto) 0.0 x10^3/uL (0.0-0.2) Sodium Level 139 mmol/L (136-145) Potassium Level 3.9 mmol/L (3.5-5.1) Chloride Level 106 mmol/L (98-107) Carbon Dioxide Level 24 mmol/L (21-32) Anion Gap 9 (6-14) Blood Urea Nitrogen 10 mg/dL (7-20) Creatinine 0.7 mg/dL (0.6-1.0) Estimated GFR (Cockcroft-Gault) 92.2 BUN/Creatinine Ratio 14 (6-20) Glucose Level 84 mg/dL (70-99) Calcium Level 7.3 mg/dL (8.5-10.1) Magnesium Level 6.1 mg/dL (1.8-2.4) Total Bilirubin 0.3 mg/dL (0.2-1.0) Aspartate Amino Transf (AST/SGOT) 44 U/L (15-37) Alanine Aminotransferase (ALT/SGPT) 82 U/L (14-59) Alkaline Phosphatase 138 U/L (46-116) Creatine Kinase 251 U/L (26-192) Total Protein 6.2 g/dL (6.4-8.2) Albumin 2.6 g/dL (3.4-5.0) Albumin/Globulin Ratio 0.7 (1.0-1.7) Assessment/Plan Assessment/Plan cellullitis, possible abscess try warm compress will review with MARIO Pena MD 11/04/19 1043: CONSULT Assessment/Plan Assessment/Plan Pt seen and examined. Agree with Enma's note Pt feels somewhat better area of induration bridge of nose, no drainage reviewed uptodate, given location is contraindication to drainage, given risk of septic phlebitis favor warm compress and ENT referral. Thanks for consult! ESCOBAR AHUMADA APRN Nov 04, 2019 09:52 MARIO RUIZ MD Nov 04, 2019 10:43
[2019-11-04] MEDS: DAPTOmycin (GENERIC) IVPB 460 MG in IV NORMAL SALINE 50ML 50 ML IV SCH (10:11)
[2019-11-04 10:29] VITALS: BP 122/76
[2019-11-04] MEDS ORDERED: SERT25TA4 PO (11:58)
[2019-11-04] MEDS ORDERED: OLAN5TAB9 PO (11:58)
--- NOTE | 2019-11-04 12:06 | PDOC3 ---
Discharge Summary Visit Information Date of Admission: Nov 03, 2019 Date of Discharge: Nov 04, 2019 Admitting Diagnosis Comment: post depression post preeclampsia? Leukocytosis, etiology undetermined Facial abscess? Final Diagnosis cellullitis, possible abscess post depression post preeclampsia? Leukocytosis, etiology most likely related to suspected abscess, no hemodynamic instability Facial abscess? Brief Hospital Course Allergies Allergies Coded Allergies Type Severity Reaction Last Updated Verified Penicillins Allergy Severe Swelling 10/28/19 Yes cephalexin Allergy Intermediate 10/28/19 Yes sulfamethoxazole Allergy Intermediate Palpitations 10/28/19 Yes trimethoprim Allergy Intermediate Palpitations 10/28/19 Yes Vital Signs Vital Signs Date Time Temp Pulse Resp B/P (MAP) Pulse Ox O2 Delivery O2 Flow Rate FiO2 11/04/19 10:29 98.2 82 20 122/76 (91) 98 Room Air 98.2 Lab Results Laboratory Tests Test 11/03/19 06:05 11/03/19 06:39 11/04/19 05:00 White Blood Count 10.1 x10^3/uL (4.0-11.0) 8.4 x10^3/uL (4.0-11.0) Red Blood Count 4.08 x10^6/uL (3.50-5.40) 3.89 x10^6/uL (3.50-5.40) Hemoglobin 14.5 g/dL (12.0-15.5) 13.7 g/dL (12.0-15.5) Hematocrit 41.8 % (36.0-47.0) 39.9 % (36.0-47.0) Mean Corpuscular Volume 103 fL (79-100) 103 fL (79-100) Mean Corpuscular Hemoglobin 36 pg (25-35) 35 pg (25-35) Mean Corpuscular Hemoglobin Concent 35 g/dL (31-37) 34 g/dL (31-37) Red Cell Distribution Width 13.8 % (11.5-14.5) 13.7 % (11.5-14.5) Platelet Count 277 x10^3/uL (140-400) 261 x10^3/uL (140-400) Neutrophils (%) (Auto) 71 % (31-73) 64 % (31-73) Lymphocytes (%) (Auto) 19 % (24-48) 23 % (24-48) Monocytes (%) (Auto) 7 % (0-9) 9 % (0-9) Eosinophils (%) (Auto) 3 % (0-3) 4 % (0-3) Basophils (%) (Auto) 1 % (0-3) 1 % (0-3) Neutrophils # (Auto) 7.2 x10^3/uL (1.8-7.7) 5.4 x10^3/uL (1.8-7.7) Lymphocytes # (Auto) 1.9 x10^3/uL (1.0-4.8) 1.9 x10^3/uL (1.0-4.8) Monocytes # (Auto) 0.7 x10^3/uL (0.0-1.1) 0.7 x10^3/uL (0.0-1.1) Eosinophils # (Auto) 0.3 x10^3/uL (0.0-0.7) 0.3 x10^3/uL (0.0-0.7) Basophils # (Auto) 0.1 x10^3/uL (0.0-0.2) 0.0 x10^3/uL (0.0-0.2) Sodium Level 138 mmol/L (136-145) 139 mmol/L (136-145) Potassium Level 4.1 mmol/L (3.5-5.1) 3.9 mmol/L (3.5-5.1) Chloride Level 105 mmol/L (98-107) 106 mmol/L (98-107) Carbon Dioxide Level 23 mmol/L (21-32) 24 mmol/L (21-32) Anion Gap 10 (6-14) 9 (6-14) Blood Urea Nitrogen 10 mg/dL (7-20) 10 mg/dL (7-20) Creatinine 0.6 mg/dL (0.6-1.0) 0.7 mg/dL (0.6-1.0) Estimated GFR (Cockcroft-Gault) 110.2 92.2 BUN/Creatinine Ratio 17 (6-20) 14 (6-20) Glucose Level 85 mg/dL (70-99) 84 mg/dL (70-99) Calcium Level 8.6 mg/dL (8.5-10.1) 7.3 mg/dL (8.5-10.1) Magnesium Level 2.8 mg/dL (1.8-2.4) 6.1 mg/dL (1.8-2.4) Total Bilirubin 0.5 mg/dL (0.2-1.0) 0.3 mg/dL (0.2-1.0) Aspartate Amino Transf (AST/SGOT) 71 U/L (15-37) 44 U/L (15-37) Alanine Aminotransferase (ALT/SGPT) 105 U/L (14-59) 82 U/L (14-59) Alkaline Phosphatase 143 U/L (46-116) 138 U/L (46-116) Creatine Kinase 335 U/L (26-192) 251 U/L (26-192) Total Protein 6.4 g/dL (6.4-8.2) 6.2 g/dL (6.4-8.2) Albumin 2.7 g/dL (3.4-5.0) 2.6 g/dL (3.4-5.0) Albumin/Globulin Ratio 0.7 (1.0-1.7) 0.7 (1.0-1.7) Urine Collection Type Unknown Urine Color Yellow Urine Clarity Clear Urine pH 6.5 (<5.0-8.0) Urine Specific [place] 1.025 (1.000-1.030) Urine Protein Negative mg/dL (NEG-TRACE) Urine Glucose (UA) Negative mg/dL (NEG) Urine Ketones (Stick) Negative mg/dL (NEG) Urine Blood Moderate (NEG) Urine Nitrite Negative (NEG) Urine Bilirubin Negative (NEG) Urine Urobilinogen Dipstick 1.0 mg/dL (0.2 mg/dL) Urine Leukocyte Esterase Negative (NEG) Urine RBC 1-2 /HPF (0-2) Urine WBC Occ /HPF (0-4) Urine Squamous Epithelial Cells Occ /LPF Urine Bacteria 0 /HPF (0-FEW) Laboratory Tests Test 11/04/19 05:00 White Blood Count 8.4 x10^3/uL (4.0-11.0) Red Blood Count 3.89 x10^6/uL (3.50-5.40) Hemoglobin 13.7 g/dL (12.0-15.5) Hematocrit 39.9 % (36.0-47.0) Mean Corpuscular Volume 103 fL (79-100) Mean Corpuscular Hemoglobin 35 pg (25-35) Mean Corpuscular Hemoglobin Concent 34 g/dL (31-37) Red Cell Distribution Width 13.7 % (11.5-14.5) Platelet Count 261 x10^3/uL (140-400) Neutrophils (%) (Auto) 64 % (31-73) Lymphocytes (%) (Auto) 23 % (24-48) Monocytes (%) (Auto) 9 % (0-9) Eosinophils (%) (Auto) 4 % (0-3) Basophils (%) (Auto) 1 % (0-3) Neutrophils # (Auto) 5.4 x10^3/uL (1.8-7.7) Lymphocytes # (Auto) 1.9 x10^3/uL (1.0-4.8) Monocytes # (Auto) 0.7 x10^3/uL (0.0-1.1) Eosinophils # (Auto) 0.3 x10^3/uL (0.0-0.7) Basophils # (Auto) 0.0 x10^3/uL (0.0-0.2) Sodium Level 139 mmol/L (136-145) Potassium Level 3.9 mmol/L (3.5-5.1) Chloride Level 106 mmol/L (98-107) Carbon Dioxide Level 24 mmol/L (21-32) Anion Gap 9 (6-14) Blood Urea Nitrogen 10 mg/dL (7-20) Creatinine 0.7 mg/dL (0.6-1.0) Estimated GFR (Cockcroft-Gault) 92.2 BUN/Creatinine Ratio 14 (6-20) Glucose Level 84 mg/dL (70-99) Calcium Level 7.3 mg/dL (8.5-10.1) Magnesium Level 6.1 mg/dL (1.8-2.4) Total Bilirubin 0.3 mg/dL (0.2-1.0) Aspartate Amino Transf (AST/SGOT) 44 U/L (15-37) Alanine Aminotransferase (ALT/SGPT) 82 U/L (14-59) Alkaline Phosphatase 138 U/L (46-116) Creatine Kinase 251 U/L (26-192) Total Protein 6.2 g/dL (6.4-8.2) Albumin 2.6 g/dL (3.4-5.0) Albumin/Globulin Ratio 0.7 (1.0-1.7) Brief Hospital Course History of Present Illness Patient is a 39 year old female who delivered about 5 days ago a baby girl. She was diagnosed with preeclampsia during her . She delivered early as a ocnsequnce. Afer her she has been feeling quite depressed and sad, she is complaining of edema of her lower extremities. She denies headache blurred vision, no history of seizure like activity, her BP seems to be normal high at the time of my visit. and she does not have focal neurolgical deficits. She was transferred from [facility] for suspected post preeclampsia. Plan of care discussed in detail. I think at this point her biggest issue is mood disorder and also a suspected facial abscess. She denies fever chills, no diaphoresis or signs of toxicity evident during myencounter, All her concerns were addressed to the best of my abilities. 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 Patient also was seen by psychiatry given that the patient was experiencing some depres sharlene given the of her first born child. Patient is not going to breast- feed and she was put on Zoloft and olanzapine from the psych standpoint of view. We are waiting for the final recommendations from Dr. Luis regarding antibiotic therapy, he is recommending for the patient to continue with her hospital stay but patient is adamant that she can no longer stay in the hospital setting. We strongly recommend along with infectious disease doctor of the risks of leaving at the present time. We will provide with a prescription for Zyvox moving forward, we will also recommend strongly to consult an institution with plastic surgery capabilities in case her lesion gets worse. Signs and symptoms of concern and when to seek medical attention were discussed prior to discharge Discharge Information Condition at Discharge: Improved Follow Up: Weeks Disposition/Orders: D/C to Home Scheduled Alprazolam (Alprazolam) 0.5 Mg Tablet, 1 TAB PO DAILY for anxiety, #30 Ref 1 Prescribed by: NEEMA SIEGEL on 10/31/19 1028 Last Action: Continued on 11/02/199 by COLEEN FLETCHER RN Furosemide (Furosemide) 20 Mg Tablet, 20 MG PO DAILY for edema, #2 Ref 0 Prescribed by: NEEMA SIEGEL on 10/31/19 1028 Last Action: Continued on 11/02/192257 by COLEEN FLETCHER RN Magnesium Sulfate (Magnesium Sulfate) 4 Gm/50 Ml Piggyback, 4 GM IV 1X for eclampsia, (Reported) Entered as Reported by: COLEEN FLETCHER RN on 11/02/192257 Last Action: New Order on 11/02/192257 by COLEEN FLETCHER RN Olanzapine (Olanzapine) 5 Mg Tablet, 5 MG PO HS for depression for 30 Days, #30 Prescribed by: ELFEGO KRISHNAMURTHY MD on 11/04/191157 Omeprazole Magnesium (Prilosec Otc) 20 Mg Tablet.dr, 1 TAB PO DAILY for gerd for 30 Days, #30 Ref 0 (Reported) Entered as Reported by: COLEEN FLETCHER RN on 11/02/192145 Last Action: Converted on 11/02/192257 by COLEEN FLETCHER RN Sertraline Hcl (Sertraline Hcl) 25 Mg Tablet, 25 MG PO DAILY for depression for 30 Days, #30 Prescribed by: ELFEGO KRISHNAMURTHY MD on 11/04/191157 Scheduled PRN Zolpidem Tartrate (Ambien) 5 Mg Tablet, 5 MG PO PRN QHS PRN for INSOMNIA, Ref 0 (Reported) Entered as Reported by: COLEEN FLETCHER RN on 11/02/192257 Last Action: New Order on 11/02/192257 by COLEEN FLETCHER RN Justicifation of Admission Dx: Justifications for Admission: Justification of Admission Dx: Comment: (patient required multiple specialties to consult and iv antibiotic therapy ) ELFEGO KRISHNAMURTHY MD Nov 04, 2019 12:06
[2019-11-04] MEDS ORDERED: LINE600T12 PO (12:08)
--- NOTE | 2019-11-04 12:20 | NUR ---
SS following up with discharge planning. SS reviewed pt chart and discussed with pt RN. Pt is currently on room air. Pt's mag drip discontinued. Discharge order on the chart for home with self care.
--- NOTE | 2019-11-04 13:20 | NUR ---
Discharge Note: HARDEEP DYE Discharge instructions and discharge home medications reviewed with Patient and a copy given. All questions have been answered and understanding verbalized. The following instructions and handouts were given: F/U with Dr. Nelson as scheduled. Discontinued lines and drains: Peripheral IV intact. Patient discharged to Home or Self Care with Family Member via Ambulated
== END 2019-11-04 13:20 | disposition home or self-care (01) | DRG 776 ==
LOC: 2 NORTH 21:20
PROVIDERS: ADMIT Family Medicine; ATTEND Family Medicine
DX: O86.89 Other specified puerperal infections (principal); L02.01 Cutaneous abscess of face; L03.211 Cellulitis of face; O14.95 Unspecified pre-eclampsia, complicating the puerperium; F53.0 Postpartum depression; O99.345 Other mental disorders complicating the puerperium; R74.0 Nonspecific elevation of levels of transaminase and lactic acid dehydrogenase [LDH]; O25.3 Malnutrition in the puerperium; Z88.1 Allergy status to other antibiotic agents; Z88.0 Allergy status to penicillin
CPT/HCPCS: 36415; 80053; 81001; 82550; 83735; 85025; J0878; J1650; J3475; G0378